=== PATIENT | female | born 1960 | race Caucasian/White ===

== ENCOUNTER 2020-02-15 23:11 | Inpatient (IN) | payer BC, MEDICAID ==
[~2020-02-15] VITALS: Ht 165.1 cm; Wt 68.9 kg
[2020-02-15] MEDS ORDERED: ASPIRIN 81MG TABLET PO ONE (23:30)
[2020-02-16] VITALS (51 sets, daily range): BP systolic 44–169; BP diastolic 24–98
[2020-02-16] LABS: HEMATOCRIT. 45.9 % (36.0-48.0); HEMOGLOBIN. 14.9 g/dL (12.0-16.0); MEAN CORPUSCULAR HEMOGLOBIN 28.8 pg (28.0-32.0); MEAN PLATELET VOLUME 10.7 fl (7.4-10.4); PLATELET 144 x1000/uL (130-400); RED BLOOD CELL COUNT 5.16 mill/uL (4.2-5.4)
[2020-02-16 00:19] LABS: CHLORIDE 94 mEq/L (98-107)
[2020-02-16 00:20] LABS: INR 1.1
[2020-02-16] MEDS ORDERED: LIDOCAINE HCL 1% 20ML VIAL (Pyxis) INJ ONE (00:39)
[2020-02-16] MEDS ORDERED: FENTANYL CITRATE/PF 50MCG/ML 2ML VIAL ONE (00:40)
[2020-02-16] MEDS ORDERED: MIDAZOLAM HCL 2 MG/2 ML VIAL ONE (00:40)
[2020-02-16] MEDS ORDERED: FUROSEMIDE 40MG/4ML VIAL ONE ×2 (00:53→03:02)
[2020-02-16] MEDS ORDERED: PROTAMINE SULFATE 10MG/ML VIAL 5ML IV ONE (01:38)
[2020-02-16] MEDS ORDERED: DOPAMINE 400MG/250ML PREMIX 250 ML IV ONE (01:48)
[2020-02-16] MEDS ORDERED: HEPARIN SODIUM 1,000 UNIT/1ML VIAL IV ONE (02:00)
[2020-02-16] MEDS ORDERED: NICARDIPINE 100MCG/ML 10ML VIAL (CATH LAB) IV ONE (02:00)
[2020-02-16] MEDS ORDERED: NITROGLYCERIN 50MCG/ML 10ML VIAL (CATH LAB) IV ONE (02:00)
[2020-02-16] MEDS ORDERED: IODIXANOL 320MG/ML 200ML BOTTLE ONE (02:01)
[2020-02-16] MEDS ORDERED: DIPHENHYDRAMINE 50MG/ML VIAL ONE (02:02)
[2020-02-16] MEDS ORDERED: TICAGRELOR 90 MG TABLET PO ONE (03:01)
[2020-02-16] MEDS ORDERED: ATROPINE SULFATE 1MG/10ML SYR IV PRN (03:15)
[2020-02-16] MEDS ORDERED: ONDANSETRON HCL 4MG/2ML INJ IV PRN (03:30)
[2020-02-16] MEDS ORDERED: DEXTROSE 50% WATER 50ML SYRINGE IV PRN ×4 (03:30→16:30)
[2020-02-16 04:42] LABS: PLATELET ESTIMATE NORMAL
[2020-02-16] MEDS ORDERED: FUROSEMIDE 100MG/10ML VIAL IVP SCH (06:00)
[2020-02-16] MEDS ORDERED: HALOPERIDOL LACTATE 5MG/ML VIAL IM NR (07:10)
[2020-02-16] MEDS ORDERED: INSULIN LISPRO 100 UNITS/ML SUBCUT SCH ×2 (07:50→08:20)
[2020-02-16] MEDS: BLOOD SUGAR DIAGNOSTIC STRIP TEST SCH ×8 (09:00→23:00)
[2020-02-16] MEDS: TICAGRELOR 90 MG TABLET PO SCH ×2 (09:00→17:00)
[2020-02-16] MEDS: ASPIRIN 81MG EC TABLET PO SCH (09:00)
[2020-02-16 10:24] LABS: CHLORIDE 95 mEq/L (98-107)
[2020-02-16 10:25] LABS: HEMATOCRIT 40.8 % (36.0-48.0); HEMOGLOBIN 13.2 g/dL (12.0-16.0); MEAN CORPUSCULAR HEMOGLOBIN 29.1 pg (28.0-32.0); MEAN CORPUSCULAR VOLUME 89.9 fL (81.0-99.0); PLATELET 126 x1000/uL (130-400); RED BLOOD CELL COUNT 4.53 mill/uL (4.2-5.4); RED CELL DISTRIBUTION WIDTH 14.4 % (11.6-14.6)
[2020-02-16 10:57] LABS: BG BASE EXCESS -14.9 mmol/L (-2.0-2.0); BG CARBOXYHEMOGLOBIN 0.8 % (0.5-1.5); BG DEOXYHEMOGLOBIN 0.9 % (0.0-5.0); BG HCO3 ACT 8.7 mmol/L (22.0-26.0); BG METHEMOGLOBIN 0.3 % (0.0-1.5); BG OXYGEN SATURATION 99.1 % (92.0-98.5); BG PCO2 17.5 mmHg (35.0-45.0); BG PH 7.314 (7.350-7.450); BG PO2 249.2 mmHg (75.0-100.0); BG SAMPLE SITE RIGHT RADIAL; BG TOTAL HEMOGLOBIN 13.6 g/dL (12.0-18.0); BG VENT MODE MASK - BIPAP
[2020-02-16] MEDS ORDERED: HALOPERIDOL LACTATE 5MG/ML VIAL IM PRN (11:00)
[2020-02-16] MEDS: INSULIN LISPRO 100 UNITS/ML SUBCUT SCH ×2 (11:13→12:09)
[2020-02-16] MEDS ORDERED: BLOOD SUGAR DIAGNOSTIC STRIP TEST SCH ×2 (11:50→16:30)
[2020-02-16] MEDS ORDERED: INSULIN GLARGINE UD 100 UNITS/ML SYR SUBCUT NR ×2 (12:00→13:00)
[2020-02-16] MEDS ORDERED: INSULIN LISPRO 100 UNITS/ML SUBCUT NR (12:00)
[2020-02-16] MEDS ORDERED: CEFTRIAXONE 1 G PREMIX 50 ML IV SCH (13:00)
[2020-02-16 14:15] LABS: CLARITY URINE TURBID (CLEAR); COLOR URINE ORANGE (YELLOW); KETONES URINE NEGATIVE (NEGATIVE); LEUKOCYTE ESTERASE URINE 2+ (NEGATIVE); NITRITE URINE NEGATIVE (NEGATIVE); OCCULT BLOOD URINE 3+ (NEGATIVE); PROTEIN URINE 4+ (NEGATIVE); SPECIFIC GRAVITY URINE 1.038 (1.005-1.030)
[2020-02-16] MEDS: CEFTRIAXONE 1,000 MG in DEXTROSE 5% WATER 50 ML IV SCH (14:21)
[2020-02-16] MEDS ORDERED: LORAZEPAM 2MG/ML CPJ IV PRN (15:30)
[2020-02-16] MEDS ORDERED: SODIUM CHLORIDE 0.45% IV ONE ×2 (16:30→17:00)
[2020-02-16] MEDS ORDERED: SODIUM BICARBONATE IV ONE ×2 (16:30→17:00)
[2020-02-16] MEDS ORDERED: INSULIN REGULAR (DRIP) 100 UNITS in SODIUM CHLORIDE 0.9% 100 ML IV SCH (17:00)
[2020-02-16 17:48] LABS: BETA HYDROXYBUTYRATE 0.4 mMol/L (0.0-0.3)
[2020-02-16] MEDS ORDERED: SODIUM BICARBONATE 5MEQ SYR 150 MEQ in DEXTROSE 5% WATER 1,000 ML IV SCH (18:30)
[2020-02-16] MEDS ORDERED: ATORVASTATIN CALCIUM 40MG TABLET PO SCH (21:00)
[2020-02-16] MEDS: SODIUM BICARBONATE 150 MEQ in DEXTROSE 5% WATER 1,000 ML IV SCH (22:29)
[2020-02-17] VITALS (93 sets, daily range): BP systolic 36–147; BP diastolic 16–122
[2020-02-17] MEDS: BLOOD SUGAR DIAGNOSTIC STRIP TEST SCH ×12 (01:00→17:50)
[2020-02-17 06:23] LABS: CHLORIDE 98 mEq/L (98-107); HEMATOCRIT. 37.8 % (36.0-48.0); HEMOGLOBIN. 12.8 g/dL (12.0-16.0); MEAN CORPUSCULAR HEMOGLOBIN 28.7 pg (28.0-32.0); MEAN PLATELET VOLUME 11.3 fl (7.4-10.4); PLATELET 93 x1000/uL (130-400); RED BLOOD CELL COUNT 4.44 mill/uL (4.2-5.4); RED CELL DISTRIBUTION WIDTH 13.9 % (11.6-14.6)
[2020-02-17] MEDS: SODIUM BICARBONATE 150 MEQ in DEXTROSE 5% WATER 1,000 ML IV SCH (09:09)
[2020-02-17] MEDS: TICAGRELOR 90 MG TABLET PO SCH (09:09)
[2020-02-17] MEDS: ASPIRIN 81MG EC TABLET PO SCH (09:09)
[2020-02-17] MEDS ORDERED: INSULIN GLARGINE UD 100 UNITS/ML SYR SUBCUT SCH (10:00)
[2020-02-17] MEDS ORDERED: SODIUM BICARBONATE 4% (2.4MEQ) 5ML VIAL IV ONE (11:09)
[2020-02-17] MEDS ORDERED: LIDOCAINE HCL 1% 20ML VIAL (Pyxis) INJ ONE (11:09)
[2020-02-17] MEDS ORDERED: DEXTROSE 50% WATER 50ML SYRINGE IV PRN (12:30)
[2020-02-17] MEDS ORDERED: POTASSIUM CHLORIDE 20MEQ/PACKET PO NR (12:30)
[2020-02-17 13:50] LABS: PHOSPHORUS 1.9 mg/dL (2.5-4.9)
[2020-02-17 13:53] LABS: BG BASE EXCESS 6.9 mmol/L (-2.0-2.0); BG CARBOXYHEMOGLOBIN 0.7 % (0.5-1.5); BG DEOXYHEMOGLOBIN 1.8 % (0.0-5.0); BG FRACTION INSPIRED OXYGEN 44; BG HCO3 ACT 28.1 mmol/L (22.0-26.0); BG METHEMOGLOBIN 0.3 % (0.0-1.5); BG OXYGEN SATURATION 98.2 % (92.0-98.5); BG OXYHEMOGLOBIN 97.2 % (94.0-97.0); BG PCO2 29.8 mmHg (35.0-45.0); BG PH 7.593 (7.350-7.450); BG PO2 122.5 mmHg (75.0-100.0); BG SAMPLE SITE RIGHT RADIAL; BG TOTAL HEMOGLOBIN 12.7 g/dL (12.0-18.0); BG VENT MODE NASAL CANNULA
[2020-02-17] MEDS: CEFTRIAXONE 1,000 MG in DEXTROSE 5% WATER 50 ML IV SCH (13:53)
[2020-02-17] MEDS ORDERED: INSULIN GLARGINE UD 100 UNITS/ML SYR SUBCUT NR (14:00)
[2020-02-17] MEDS ORDERED: FUROSEMIDE 40MG/4ML VIAL IVP NR (14:00)
[2020-02-17] MEDS ORDERED: KCL 10MEQ/50ML PREMIX 50 ML IV NR (14:00)
[2020-02-17] MEDS ORDERED: AMIODARONE HCL 50MG/ML 3ML VIAL IV ONE (15:15)
[2020-02-17] MEDS ORDERED: CLOPIDOGREL 75MG TABLET PO NR (16:15)
[2020-02-17] MEDS ORDERED: AMIODARONE HCL 150 MG in DEXT 5% WATER 100 ML IV NR (17:00)
[2020-02-17 17:29] LABS: PLATELET ESTIMATE DECREASED
[2020-02-17] MEDS: INSULIN LISPRO 100 UNITS/ML SUBCUT SCH (18:48)
[2020-02-17] MEDS: INSULIN GLARGINE UD 100 UNITS/ML SYR SUBCUT SCH (22:17)
[2020-02-18] VITALS (81 sets, daily range): BP systolic 84–154; BP diastolic 28–118
[2020-02-18] MEDS: BLOOD SUGAR DIAGNOSTIC STRIP TEST SCH ×4 (00:19→17:49)
[2020-02-18 04:26] LABS: CHLORIDE 96 mEq/L (98-107)
[2020-02-18] MEDS: INSULIN LISPRO 100 UNITS/ML SUBCUT SCH ×4 (05:53→18:04)
[2020-02-18] MEDS: ASPIRIN 81MG EC TABLET PO SCH (08:35)
[2020-02-18] MEDS: CLOPIDOGREL 75MG TABLET PO SCH (08:35)
[2020-02-18 09:43] LABS: CHLORIDE 95 mEq/L (98-107)
[2020-02-18] MEDS: SPIRONOLACTONE 25MG TABLET PO SCH (10:47)
[2020-02-18] MEDS ORDERED: POTASSIUM CHLORIDE 20MEQ TABLET SR PO SCH (11:00)
[2020-02-18] MEDS ORDERED: POTASSIUM CHLORIDE 20MEQ TABLET SR PO ONE (11:00)
[2020-02-18] MEDS ORDERED: POTASSIUM PHOS,M-BASIC-D-BASIC 30 MMOL in SODIUM CHLORIDE 0.9% 500 ML IV SCH (13:00)
[2020-02-18] MEDS: CEFTRIAXONE 1,000 MG in DEXTROSE 5% WATER 50 ML IV SCH (13:15)
[2020-02-18 15:31] LABS: CHLORIDE 95 mEq/L (98-107)
[2020-02-18] MEDS: METOPROLOL TARTRATE 25MG TABLET PO SCH (21:42)
[2020-02-18] MEDS: INSULIN GLARGINE UD 100 UNITS/ML SYR SUBCUT SCH (22:09)
[2020-02-19] VITALS (17 sets, daily range): BP systolic 87–131; BP diastolic 33–82
[2020-02-19] MEDS: INSULIN LISPRO 100 UNITS/ML SUBCUT SCH ×4 (00:38→18:11)
[2020-02-19] MEDS: BLOOD SUGAR DIAGNOSTIC STRIP TEST SCH ×5 (00:40→21:53)
[2020-02-19] MEDS: ACETAMINOPHEN 325MG TABLET PO PRN (03:28)
[2020-02-19 04:38] LABS: CHLORIDE 98 mEq/L (98-107)
[2020-02-19] MEDS: METOPROLOL TARTRATE 25MG TABLET PO SCH ×2 (08:20→21:00)
[2020-02-19] MEDS: FUROSEMIDE 40MG TABLET PO SCH (08:21)
[2020-02-19] MEDS: ASPIRIN 81MG EC TABLET PO SCH (08:21)
[2020-02-19] MEDS: SPIRONOLACTONE 25MG TABLET PO SCH (08:21)
[2020-02-19] MEDS: CLOPIDOGREL 75MG TABLET PO SCH (08:21)
[2020-02-19 09:43] LABS: CHLORIDE 99 mEq/L (98-107)
[2020-02-19] MEDS: CEFTRIAXONE 1,000 MG in DEXTROSE 5% WATER 50 ML IV SCH (14:26)
[2020-02-19 17:31] LABS: CHLORIDE 98 mEq/L (98-107)
[2020-02-19] MEDS: INSULIN GLARGINE UD 100 UNITS/ML SYR SUBCUT SCH (22:00)
[2020-02-20] VITALS (7 sets, daily range): BP systolic 101–126; BP diastolic 61–70
[2020-02-20] MEDS: INSULIN LISPRO 100 UNITS/ML SUBCUT SCH ×4 (00:10→17:16)
[2020-02-20] MEDS: ACETAMINOPHEN 325MG TABLET PO PRN ×2 (01:55→17:09)
[2020-02-20] MEDS: BLOOD SUGAR DIAGNOSTIC STRIP TEST SCH ×3 (06:29→16:09)
[2020-02-20] MEDS ORDERED: LISINOPRIL 5MG TABLET PO SCH (09:00)
[2020-02-20] MEDS: CLOPIDOGREL 75MG TABLET PO SCH (09:54)
[2020-02-20] MEDS: FUROSEMIDE 40MG TABLET PO SCH (09:54)
[2020-02-20] MEDS: SPIRONOLACTONE 25MG TABLET PO SCH (09:54)
[2020-02-20] MEDS: ASPIRIN 81MG EC TABLET PO SCH (09:54)
[2020-02-20] MEDS: METOPROLOL TARTRATE 25MG TABLET PO SCH (09:55)
[2020-02-20 13:11] LABS: HEMATOCRIT. 41.9 % (36.0-48.0); MEAN CORPUSCULAR HEMOGLOBIN 28.5 pg (28.0-32.0); MEAN CORPUSCULAR VOLUME 85.3 fL (81.0-99.0); MEAN PLATELET VOLUME 10.8 fl (7.4-10.4); PLATELET 76 x1000/uL (130-400); RED BLOOD CELL COUNT 4.91 mill/uL (4.2-5.4); RED CELL DISTRIBUTION WIDTH 14.2 % (11.6-14.6)
[2020-02-20] MEDS: CEFTRIAXONE 1,000 MG in DEXTROSE 5% WATER 50 ML IV SCH (14:00)
[2020-02-20 14:19] LABS: CHLORIDE 99 mEq/L (98-107)
[2020-02-20 22:50] LABS: NUCLEATED RED BLOOD CELLS 1 /100 WBC
[2020-02-20 22:51] LABS: PLATELET ESTIMATE DECREASED
== END 2020-02-20 21:00 | disposition home health service (06) | DRG 246 ==
LOC: ER 23:11 → 3WST 02-16 00:46 → 5EST 02-16 11:35 → 5WST 02-19 18:28
PROVIDERS: ADMIT Internal Medicine; ATTEND Internal Medicine
PROC: 4A023N7 Measurement of Cardiac Sampling and Pressure, Left Heart, Percutaneous Approach (ICD-10-PCS; principal; 2020-02-16)
PROC: 0270366 Dilation of Coronary Artery, One Artery, Bifurcation, with Three Drug-eluting Intraluminal Devices, Percutaneous Approach (ICD-10-PCS; 2020-02-16)
PROC: B211YZZ Fluoroscopy of Multiple Coronary Arteries using Other Contrast (ICD-10-PCS; 2020-02-16)
PROC: B41FYZZ Fluoroscopy of Right Lower Extremity Arteries using Other Contrast (ICD-10-PCS; 2020-02-16)
PROC: B54BZZA Ultrasonography of Right Lower Extremity Veins, Guidance (ICD-10-PCS; 2020-02-16)
PROC: 02HV33Z Insertion of Infusion Device into Superior Vena Cava, Percutaneous Approach (ICD-10-PCS; 2020-02-17)
PROC: B548ZZA Ultrasonography of Superior Vena Cava, Guidance (ICD-10-PCS; 2020-02-17)
DX: I21.19 ST elevation (STEMI) myocardial infarction involving other coronary artery of inferior wall (principal); E11.10 Type 2 diabetes mellitus with ketoacidosis without coma; I50.21 Acute systolic (congestive) heart failure; J96.01 Acute respiratory failure with hypoxia; R57.0 Cardiogenic shock; G93.41 Metabolic encephalopathy; K72.00 Acute and subacute hepatic failure without coma; N17.9 Acute kidney failure, unspecified; E87.1 Hypo-osmolality and hyponatremia; I47.1 Supraventricular tachycardia; I25.10 Atherosclerotic heart disease of native coronary artery without angina pectoris; E87.6 Hypokalemia; I34.0 Nonrheumatic mitral (valve) insufficiency; I25.5 Ischemic cardiomyopathy; D69.6 Thrombocytopenia, unspecified; E83.39 Other disorders of phosphorus metabolism; K59.00 Constipation, unspecified; Z79.4 Long term (current) use of insulin; Z20.822 Contact with and (suspected) exposure to COVID-19
CPT/HCPCS: 36415; 36600; 71045; 76937; 80048; 80053; 80061; 81003; 82010; 82375; 82805; 82947; 82962; 83036; 83605; 83735; 83880; 84100; 84484; 85025; 85027; 85347; 87077; 87186; 87426; 92610; 92928; 93005; 93306; 93458; 94660; 97162; 97166; 97530; 97535; 99285; C1725; C1760; C1769; C1874 ×2; C1887; C1893; J0282; J0696; J1200; J1265; J1630; J1644; J1815; J1940; J2250; J2720; J3010; J3480; J3490; J7040; J7050; J7060; J7070; Q9967; U0003; J8499

== ENCOUNTER 2020-03-01 19:22 | Inpatient (IN) | payer BC, MEDICAID ==
[~2020-03-01] VITALS: Ht 167.6 cm; Wt 73.5 kg
[2020-03-01 20:23] LABS: BASOPHILS % 0.4 % (0.0-2.0); EOSINOPHILS % 0.5 % (0.0-5.0); HEMATOCRIT. 38.3 % (36.0-48.0); HEMOGLOBIN. 12.6 g/dL (12.0-16.0); LYMPHOCYTES % 9.9 % (20.0-50.0); MEAN CORPUSCULAR HEMOGLOBIN 28.4 pg (28.0-32.0); MEAN CORPUSCULAR VOLUME 86.3 fL (81.0-99.0); MONOCYTES % 4.8 % (2.0-8.0); NEUTROPHILS % 84.4 % (40.0-76.0); PLATELET 305 x1000/uL (130-400); RED BLOOD CELL COUNT 4.44 mill/uL (4.2-5.4); RED CELL DISTRIBUTION WIDTH 14.2 % (11.6-14.6)
[2020-03-01 20:31] LABS: CHLORIDE 89 mEq/L (98-107); PROTHROMBIN TIME 10.9 sec (9.6-11.0)
[2020-03-01 20:35] LABS: ETHANOL BLOOD < 10 mg/dL
[2020-03-01] MEDS ORDERED: SODIUM CHLORIDE 0.9% 1,000 ML IV ONE (20:45)
[2020-03-01] MEDS ORDERED: INSULIN REGULAR (HUMULIN R) 300UNITS/3ML VIAL IV ONE (21:00)
[2020-03-02 03:03] LABS: CLARITY URINE TURBID (CLEAR); COLOR URINE YELLOW (YELLOW); KETONES URINE NEGATIVE (NEGATIVE); LEUKOCYTE ESTERASE URINE 2+ (NEGATIVE); NITRITE URINE NEGATIVE (NEGATIVE); OCCULT BLOOD URINE 2+ (NEGATIVE); PROTEIN URINE TRACE (NEGATIVE); SPECIFIC GRAVITY URINE 1.021 (1.005-1.030); UROBILINOGEN URINE 0.2 E.U./dL (0.2-1.0)
[2020-03-02 03:21] LABS: *AMPHETAMINES SCREEN URINE NEGATIVE (NEGATIVE); *BARBITURATES SCREEN URINE NEGATIVE (NEGATIVE); *BENZODIAZEPINES SCREEN URINE NEGATIVE (NEGATIVE); *COCAINE SCREEN URINE NEGATIVE (NEGATIVE); METHADONE URINE SCREEN NEGATIVE (NEGATIVE)
[2020-03-02 03:22] LABS: CANNABINOID URINE SCREEN NEGATIVE (NEGATIVE); OPIATES URINE SCREEN NEGATIVE (NEGATIVE); PHENCYCLIDINE URINE SCREEN NEGATIVE (NEGATIVE)
[2020-03-02] MEDS: ASPIRIN 81MG TABLET PO SCH (10:45)
[2020-03-02] MEDS: CLOPIDOGREL 75MG TABLET PO SCH (10:45)
[2020-03-02] MEDS ORDERED: DEXTROSE 50% WATER 50ML SYRINGE IV PRN (12:00)
[2020-03-02] MEDS ORDERED: ONDANSETRON HCL 4MG/2ML INJ IV PRN (12:00)
[2020-03-02] MEDS ORDERED: ACETAMINOPHEN 325MG TABLET PO PRN (12:00)
[2020-03-02] MEDS: BLOOD SUGAR DIAGNOSTIC STRIP TEST SCH ×3 (12:41→21:52)
[2020-03-02] MEDS: INSULIN LISPRO 100 UNITS/ML SUBCUT SCH ×3 (12:43→21:52)
[2020-03-02] MEDS: INSULIN GLARGINE UD 100 UNITS/ML SYR SUBCUT SCH (14:16)
[2020-03-02 14:19] LABS: BASOPHILS % 0.9 % (0.0-2.0); EOSINOPHILS % 0.4 % (0.0-5.0); HEMATOCRIT. 37.2 % (36.0-48.0); HEMOGLOBIN. 12.1 g/dL (12.0-16.0); LYMPHOCYTES % 10.7 % (20.0-50.0); MEAN CORPUSCULAR VOLUME 86.2 fL (81.0-99.0); MEAN PLATELET VOLUME 8.9 fl (7.4-10.4); MONOCYTES % 4.6 % (2.0-8.0); NEUTROPHILS % 83.4 % (40.0-76.0); PLATELET 307 x1000/uL (130-400); RED BLOOD CELL COUNT 4.32 mill/uL (4.2-5.4); RED CELL DISTRIBUTION WIDTH 14.2 % (11.6-14.6)
[2020-03-02 14:26] LABS: CHLORIDE 103 mEq/L (98-107)
[2020-03-02] MEDS ORDERED: FLUCONAZOLE 100MG TABLET PO NR (18:45)
[2020-03-02] MEDS ORDERED: TRAZODONE HCL 50MG TABLET PO PRN (21:00)
[2020-03-02] MEDS: ATORVASTATIN CALCIUM 40MG TABLET PO SCH (21:51)
[2020-03-02] MEDS: HEPARIN 5000 UNITS/ML VIAL SUBCUT SCH (21:54)
[2020-03-03 06:02] LABS: BASOPHILS % 1.1 % (0.0-2.0); EOSINOPHILS % 0.6 % (0.0-5.0); HEMATOCRIT. 38.6 % (36.0-48.0); HEMOGLOBIN. 12.8 g/dL (12.0-16.0); LYMPHOCYTES % 15.1 % (20.0-50.0); MEAN CORPUSCULAR HEMOGLOBIN 28.1 pg (28.0-32.0); MEAN CORPUSCULAR VOLUME 84.9 fL (81.0-99.0); MEAN PLATELET VOLUME 8.7 fl (7.4-10.4); MONOCYTES % 8.7 % (2.0-8.0); NEUTROPHILS % 74.5 % (40.0-76.0); PLATELET 339 x1000/uL (130-400); RED BLOOD CELL COUNT 4.55 mill/uL (4.2-5.4); RED CELL DISTRIBUTION WIDTH 14.2 % (11.6-14.6)
[2020-03-03 06:36] LABS: CHLORIDE 104 mEq/L (98-107)
[2020-03-03] MEDS: BLOOD SUGAR DIAGNOSTIC STRIP TEST SCH ×4 (10:00→21:07)
[2020-03-03] MEDS: HEPARIN 5000 UNITS/ML VIAL SUBCUT SCH ×2 (10:00→21:17)
[2020-03-03] MEDS: ASPIRIN 81MG TABLET PO SCH (10:00)
[2020-03-03] MEDS: CLOPIDOGREL 75MG TABLET PO SCH (10:00)
[2020-03-03] MEDS: INSULIN LISPRO 100 UNITS/ML SUBCUT SCH ×4 (10:00→21:16)
[2020-03-03] MEDS: INSULIN GLARGINE UD 100 UNITS/ML SYR SUBCUT SCH (11:00)
[2020-03-03] MEDS ORDERED: INSULIN GLARGINE UD 100 UNITS/ML SYR SUBCUT NR (14:45)
[2020-03-03 21:52] VITALS: BP 136/72
[2020-03-03 22:30] VITALS: BP 136/72
[2020-03-04] VITALS (7 sets, daily range): BP systolic 115–133; BP diastolic 41–77
[2020-03-04] MEDS: ATORVASTATIN CALCIUM 40MG TABLET PO SCH (00:03)
[2020-03-04] MEDS: BLOOD SUGAR DIAGNOSTIC STRIP TEST SCH ×2 (06:30→12:34)
[2020-03-04] MEDS: INSULIN LISPRO 100 UNITS/ML SUBCUT SCH ×2 (06:44→13:29)
[2020-03-04] MEDS ORDERED: PNEUMOCOCCAL 23-VAL P-SAC VAC 0.5 ML IM ONE (06:45)
[2020-03-04] MEDS ORDERED: INFLUENZA VACCINE 05/PF 0.5 ML VIAL IM ONE (06:45)
[2020-03-04 07:19] LABS: EOSINOPHILS % 0.7 % (0.0-5.0); HEMATOCRIT. 35.2 % (36.0-48.0); HEMOGLOBIN. 11.7 g/dL (12.0-16.0); LYMPHOCYTES % 18.9 % (20.0-50.0); MEAN CORPUSCULAR HEMOGLOBIN 28.3 pg (28.0-32.0); MEAN CORPUSCULAR VOLUME 84.8 fL (81.0-99.0); MEAN PLATELET VOLUME 8.9 fl (7.4-10.4); MONOCYTES % 10.6 % (2.0-8.0); NEUTROPHILS % 68.8 % (40.0-76.0); PLATELET 328 x1000/uL (130-400); RED BLOOD CELL COUNT 4.14 mill/uL (4.2-5.4); RED CELL DISTRIBUTION WIDTH 14.1 % (11.6-14.6)
[2020-03-04 07:42] LABS: CHLORIDE 106 mEq/L (98-107)
[2020-03-04] MEDS: HEPARIN 5000 UNITS/ML VIAL SUBCUT SCH (09:28)
[2020-03-04] MEDS: CLOPIDOGREL 75MG TABLET PO SCH (09:28)
[2020-03-04] MEDS: ASPIRIN 81MG TABLET PO SCH (09:28)
[2020-03-04] MEDS ORDERED: INSULIN GLARGINE UD 100 UNITS/ML SYR SUBCUT SCH ×2 (10:00)
[2020-03-04] MEDS ORDERED: CLOP75TA15 PO (11:47)
[2020-03-04] MEDS ORDERED: ASPI-1160 PO (11:47)
[2020-03-04] MEDS ORDERED: LIP40 PO (11:47)
[2020-03-04] MEDS ORDERED: LANTUSUD SUBCUT (11:47)
[2020-03-04] MEDS ORDERED: METO25TA6 PO (11:47)
[2020-03-04] MEDS ORDERED: METOPROLOL TARTRATE 25MG TABLET PO SCH (21:00)
== END 2020-03-04 16:17 | disposition home or self-care (01) | DRG 280 ==
LOC: ER 19:22 → 3WST 20:43 → ENRESERV 03-03 20:52
PROVIDERS: ADMIT Internal Medicine; ATTEND Internal Medicine
DX: I21.4 Non-ST elevation (NSTEMI) myocardial infarction (principal); E11.10 Type 2 diabetes mellitus with ketoacidosis without coma; E87.1 Hypo-osmolality and hyponatremia; I50.22 Chronic systolic (congestive) heart failure; N39.0 Urinary tract infection, site not specified; I95.9 Hypotension, unspecified; E11.65 Type 2 diabetes mellitus with hyperglycemia; E78.5 Hyperlipidemia, unspecified; E86.0 Dehydration; E87.8 Other disorders of electrolyte and fluid balance, not elsewhere classified; G47.00 Insomnia, unspecified; E86.1 Hypovolemia; I11.0 Hypertensive heart disease with heart failure; I25.10 Atherosclerotic heart disease of native coronary artery without angina pectoris; I25.2 Old myocardial infarction; Z79.4 Long term (current) use of insulin; Z98.61 Coronary angioplasty status; Z79.899 Other long term (current) drug therapy; Z79.82 Long term (current) use of aspirin
CPT/HCPCS: 36415; 71045; 80053; 80320; 82962; 83735; 83880; 84484; 85025; 90686; 90732; 93005; 96361; 96372; 96374; 97162; 97166; 99285; J1644; J1815; J7030; G0480

== ENCOUNTER 2020-03-14 20:38 | Inpatient (IN) | payer BC, MEDICAID ==
[~2020-03-14] VITALS: Ht 165.1 cm; Wt 68.0 kg
[~2020-03-14 20:38] MED LIST: ASPI-1160 PO; CLOP75TA15 PO; LANTUSUD SUBCUT; LIP40 PO
[2020-03-14 21:42] LABS: BASOPHILS % 1.1 % (0.0-2.0); EOSINOPHILS % 0.5 % (0.0-5.0); HEMOGLOBIN. 12.7 g/dL (12.0-16.0); LYMPHOCYTES % 12.6 % (20.0-50.0); MEAN CORPUSCULAR HEMOGLOBIN 28.4 pg (28.0-32.0); MEAN CORPUSCULAR VOLUME 84.6 fL (81.0-99.0); MEAN PLATELET VOLUME 7.5 fl (7.4-10.4); MONOCYTES % 7.4 % (2.0-8.0); NEUTROPHILS % 78.4 % (40.0-76.0); PLATELET 362 x1000/uL (130-400); RED BLOOD CELL COUNT 4.49 mill/uL (4.2-5.4); RED CELL DISTRIBUTION WIDTH 14.5 % (11.6-14.6)
[2020-03-14] MEDS ORDERED: FUROSEMIDE 100MG/10ML VIAL IVP ONE (21:45)
[2020-03-14 21:46] LABS: CHLORIDE 100 mEq/L (98-107)
[2020-03-14 21:49] LABS: INR 1.1; PROTHROMBIN TIME 11.4 sec (9.6-11.0)
[2020-03-14] MEDS ORDERED: FUROSEMIDE 20MG/2ML VIAL IVP ONE (22:30)
[2020-03-14] MEDS ORDERED: ASPIRIN 325MG TABLET PO NR (22:30)
[2020-03-14] MEDS ORDERED: ENOXAPARIN 80MG/0.8ML SYR SUBCUT ONE (22:45)
[2020-03-14] MEDS ORDERED: ONDANSETRON HCL 4MG/2ML INJ IV PRN (22:45)
[2020-03-14] MEDS ORDERED: CLOPIDOGREL 75MG TABLET PO ONE (22:45)
[2020-03-14] MEDS ORDERED: TRAZODONE HCL 50MG TABLET PO PRN (22:45)
[2020-03-14] MEDS ORDERED: ACETAMINOPHEN 325MG TABLET PO PRN (22:45)
[2020-03-14] MEDS ORDERED: DEXTROSE 50% WATER 50ML SYRINGE IV PRN (22:45)
[2020-03-15] MEDS: ENOXAPARIN 40MG/0.4ML SYR SUBCUT SCH (06:58)
[2020-03-15] MEDS: BLOOD SUGAR DIAGNOSTIC STRIP TEST SCH ×4 (08:15→21:31)
[2020-03-15] MEDS: INSULIN LISPRO 100 UNITS/ML SUBCUT SCH ×4 (08:19→23:26)
[2020-03-15] MEDS: ASPIRIN 81MG EC TABLET PO SCH (08:19)
[2020-03-15] MEDS ORDERED: CEFTRIAXONE 1 G PREMIX 50 ML IV SCH (12:15)
[2020-03-15] MEDS: CLOPIDOGREL 75MG TABLET PO SCH (13:13)
[2020-03-15] MEDS: CEFTRIAXONE 1,000 MG in DEXTROSE 5% WATER 50 ML IV SCH (15:17)
[2020-03-15] MEDS: AZITHROMYCIN 500 MG in DEXT 5% WATER 250 ML IV SCH (15:17)
[2020-03-15 16:00] VITALS: BP 103/62
[2020-03-15 17:32] LABS: BASOPHILS % 0.6 % (0.0-2.0); EOSINOPHILS % 0.9 % (0.0-5.0); HEMATOCRIT. 33.6 % (36.0-48.0); HEMOGLOBIN. 11.2 g/dL (12.0-16.0); LYMPHOCYTES % 14.6 % (20.0-50.0); MEAN CORPUSCULAR VOLUME 83.7 fL (81.0-99.0); MEAN PLATELET VOLUME 7.6 fl (7.4-10.4); MONOCYTES % 6.3 % (2.0-8.0); NEUTROPHILS % 77.6 % (40.0-76.0); PLATELET 355 x1000/uL (130-400); RED BLOOD CELL COUNT 4.02 mill/uL (4.2-5.4); RED CELL DISTRIBUTION WIDTH 14.8 % (11.6-14.6)
[2020-03-15 17:51] LABS: CHLORIDE 99 mEq/L (98-107)
[2020-03-15 20:00] VITALS: BP 100/50
[2020-03-15] MEDS: METOPROLOL TARTRATE 25MG TABLET PO SCH (21:00)
[2020-03-15] MEDS: ATORVASTATIN CALCIUM 40MG TABLET PO SCH (23:26)
[2020-03-16] VITALS (7 sets, daily range): BP systolic 101–118; BP diastolic 56–80
[2020-03-16] MEDS: ENOXAPARIN 40MG/0.4ML SYR SUBCUT SCH (05:25)
[2020-03-16] MEDS: BLOOD SUGAR DIAGNOSTIC STRIP TEST SCH ×4 (06:40→21:00)
[2020-03-16] MEDS: INSULIN LISPRO 100 UNITS/ML SUBCUT SCH ×4 (07:10→22:36)
[2020-03-16] MEDS ORDERED: LIDOCAINE HCL 1% 20ML VIAL (Pyxis) INJ ONE (07:39)
[2020-03-16] MEDS ORDERED: IODIXANOL 320MG/ML 100 ML BOTTLE IV ONE (07:39)
[2020-03-16] MEDS ORDERED: HEPARIN 1,000 UNITS PREMIX 0 ML IV ONE (07:39)
[2020-03-16] MEDS ORDERED: IOHEXOL-300 100 ML BOTTLE ONE (07:40)
[2020-03-16 08:28] LABS: CHLORIDE 103 mEq/L (98-107)
[2020-03-16] MEDS: CLOPIDOGREL 75MG TABLET PO SCH (08:52)
[2020-03-16] MEDS: METOPROLOL TARTRATE 25MG TABLET PO SCH ×2 (08:52→22:37)
[2020-03-16] MEDS: ASPIRIN 81MG EC TABLET PO SCH (09:00)
[2020-03-16 11:19] LABS: BASOPHILS % 0.6 % (0.0-2.0); EOSINOPHILS % 0.8 % (0.0-5.0); HEMOGLOBIN. 10.5 g/dL (12.0-16.0); LYMPHOCYTES % 13.2 % (20.0-50.0); MEAN CORPUSCULAR HEMOGLOBIN 28.5 pg (28.0-32.0); MEAN PLATELET VOLUME 7.7 fl (7.4-10.4); MONOCYTES % 7.8 % (2.0-8.0); NEUTROPHILS % 77.6 % (40.0-76.0); PLATELET 322 x1000/uL (130-400); RED BLOOD CELL COUNT 3.69 mill/uL (4.2-5.4); RED CELL DISTRIBUTION WIDTH 14.6 % (11.6-14.6)
[2020-03-16] MEDS: CEFTRIAXONE 1,000 MG in DEXTROSE 5% WATER 50 ML IV SCH (13:01)
[2020-03-16] MEDS ORDERED: METO25TA6 PO (13:22)
[2020-03-16] MEDS ORDERED: AZIT500T8 MT (13:22)
[2020-03-16] MEDS: AZITHROMYCIN 500 MG in DEXT 5% WATER 250 ML IV SCH (14:36)
[2020-03-16] MEDS: ATORVASTATIN CALCIUM 40MG TABLET PO SCH (22:36)
[2020-03-17] VITALS: BP 123/72
[2020-03-17 04:00] VITALS: BP 101/62
[2020-03-17] MEDS: ENOXAPARIN 40MG/0.4ML SYR SUBCUT SCH (05:20)
[2020-03-17] MEDS: BLOOD SUGAR DIAGNOSTIC STRIP TEST SCH ×2 (06:40→11:40)
[2020-03-17 06:47] LABS: BASOPHILS % 0.5 % (0.0-2.0); EOSINOPHILS % 1.5 % (0.0-5.0); HEMOGLOBIN. 11.3 g/dL (12.0-16.0); LYMPHOCYTES % 14.8 % (20.0-50.0); MEAN CORPUSCULAR HEMOGLOBIN 27.9 pg (28.0-32.0); MEAN CORPUSCULAR VOLUME 84.3 fL (81.0-99.0); MEAN PLATELET VOLUME 7.8 fl (7.4-10.4); MONOCYTES % 6.3 % (2.0-8.0); NEUTROPHILS % 76.9 % (40.0-76.0); PLATELET 381 x1000/uL (130-400); RED BLOOD CELL COUNT 4.03 mill/uL (4.2-5.4); RED CELL DISTRIBUTION WIDTH 14.6 % (11.6-14.6)
[2020-03-17 07:05] LABS: CHLORIDE 103 mEq/L (98-107)
[2020-03-17 08:00] VITALS: BP 114/73
[2020-03-17] MEDS: CLOPIDOGREL 75MG TABLET PO SCH (09:58)
[2020-03-17] MEDS: METOPROLOL TARTRATE 25MG TABLET PO SCH (09:58)
[2020-03-17] MEDS: ASPIRIN 81MG EC TABLET PO SCH (09:58)
[2020-03-17] MEDS ORDERED: FUROSEMIDE 20MG TABLET PO SCH (10:00)
[2020-03-17] MEDS ORDERED: SPIRONOLACTONE 25MG TABLET PO SCH (10:00)
[2020-03-17] MEDS: INSULIN LISPRO 100 UNITS/ML SUBCUT SCH ×2 (10:03→12:10)
[2020-03-17 12:00] VITALS: BP 105/68
[2020-03-17] MEDS ORDERED: MIDAZOLAM HCL 5 MG/5 ML VIAL ONE (13:23)
[2020-03-17] MEDS ORDERED: FENTANYL CITRATE/PF 50MCG/ML 5ML VIAL ONE (13:23)
[2020-03-17 14:13] VITALS: BP 105/68
== END 2020-03-17 15:05 | disposition home or self-care (01) | DRG 871 ==
LOC: ER 20:38 → 7EST 03-15 00:05 → EDBEDREQ 03-15 00:09 → ENRESERV 03-15 08:17
PROVIDERS: ADMIT Family Medicine Adult Medicine; ATTEND Family Medicine Adult Medicine
DX: A41.9 Sepsis, unspecified organism (principal); I21.4 Non-ST elevation (NSTEMI) myocardial infarction; J18.9 Pneumonia, unspecified organism; I50.23 Acute on chronic systolic (congestive) heart failure; J96.90 Respiratory failure, unspecified, unspecified whether with hypoxia or hypercapnia; E87.1 Hypo-osmolality and hyponatremia; E87.2 Acidosis; Z20.822 Contact with and (suspected) exposure to COVID-19; I25.10 Atherosclerotic heart disease of native coronary artery without angina pectoris; I11.0 Hypertensive heart disease with heart failure; F17.200 Nicotine dependence, unspecified, uncomplicated; E78.5 Hyperlipidemia, unspecified; E11.9 Type 2 diabetes mellitus without complications; Z95.5 Presence of coronary angioplasty implant and graft; I25.2 Old myocardial infarction; Z79.4 Long term (current) use of insulin; Z79.899 Other long term (current) drug therapy; Z79.82 Long term (current) use of aspirin
CPT/HCPCS: 36415; 71045; 80053; 82962; 83036; 83605; 83735; 83880; 84145; 84484; 85025; 87426; 93005; 96365; 99285; J0456; J0696; J1644; J1650; J1815; J1940; J2250; J3010; J3490; J7040; J7060; Q9967; U0003

== ENCOUNTER 2020-04-24 12:19 | Inpatient (IN) | payer OTHER, MEDICAID ==
[~2020-04-24] VITALS: Ht 167 cm; Wt 73.2 kg
[~2020-04-24 12:19] MED LIST changes: +AZIT500T8 MT; +METO25TA6 PO
[2020-04-24] MEDS ORDERED: ASPIRIN 81MG TABLET PO ONE (12:45)
[2020-04-24] MEDS: NITROGLYCERIN 0.4MG TABLET SL SL PRN ×2 (13:00→13:37)
[2020-04-24 13:52] LABS: BASOPHILS % 0.7 % (0.0-2.0); EOSINOPHILS % 2.5 % (0.0-5.0); HEMATOCRIT. 37.2 % (36.0-48.0); HEMOGLOBIN. 12.3 g/dL (12.0-16.0); LYMPHOCYTES % 30.2 % (20.0-50.0); MEAN CORPUSCULAR HEMOGLOBIN 27.1 pg (28.0-32.0); MEAN CORPUSCULAR VOLUME 82.1 fL (81.0-99.0); MEAN PLATELET VOLUME 7.4 fl (7.4-10.4); MONOCYTES % 8.1 % (2.0-8.0); NEUTROPHILS % 58.5 % (40.0-76.0); PLATELET 315 x1000/uL (130-400); RED BLOOD CELL COUNT 4.53 mill/uL (4.2-5.4); RED CELL DISTRIBUTION WIDTH 15.7 % (11.6-14.6)
[2020-04-24 13:59] LABS: CHLORIDE 102 mEq/L (98-107)
[2020-04-24 14:01] LABS: INR 1.1; PROTHROMBIN TIME 11.5 sec (9.6-11.0)
[2020-04-24 16:30] VITALS: BP 138/77
[2020-04-24] MEDS ORDERED: METF1000 MT (16:41)
[2020-04-24] MEDS ORDERED: OXYB5TAB17 MT (16:41)
[2020-04-24] MEDS ORDERED: GABA-532 MT (16:41)
[2020-04-24] MEDS ORDERED: *PATIENT'S OWN MEDICATION STORAGE XX SCH (17:00)
[2020-04-24 18:00] VITALS: BP 147/91
[2020-04-24] MEDS ORDERED: DEXTROSE 50% WATER 50ML SYRINGE IV PRN (18:30)
[2020-04-24 20:01] VITALS: BP 154/73
[2020-04-24] MEDS ORDERED: NITROGLYCERIN 0.4MG TABLET SL SL PRN (20:45)
[2020-04-24] MEDS ORDERED: FUROSEMIDE 40MG/4ML VIAL IVP NR (21:00)
[2020-04-24] MEDS: INSULIN LISPRO 100 UNITS/ML SUBCUT SCH (21:00)
[2020-04-24] MEDS ORDERED: CHLORHEXIDINE GLUCONATE 4% EXTERNAL USE TOP SCH (21:00)
[2020-04-24] MEDS ORDERED: BISACODYL 10MG SUPP PR PRN (21:00)
[2020-04-24] MEDS ORDERED: DIPHENHYDRAMINE 25MG CAPSULE PO PRN (21:00)
[2020-04-24] MEDS ORDERED: ASCORBIC ACID 500 MG TABLET PO SCH (21:00)
[2020-04-24] MEDS ORDERED: ENOXAPARIN 40MG/0.4ML SYR SUBCUT SCH (21:00)
[2020-04-24] MEDS ORDERED: DOCUSATE SODIUM 100MG CAPSULE PO SCH (21:00)
[2020-04-24] MEDS: BLOOD SUGAR DIAGNOSTIC STRIP TEST SCH (21:13)
[2020-04-24 21:47] LABS: INR 1.1; PARTIAL THROMBOPLASTIN TIME 28.8 sec (23.4-31.0); PROTHROMBIN TIME 11.6 sec (9.6-11.0)
[2020-04-24] MEDS: ATORVASTATIN CALCIUM 40MG TABLET PO SCH (21:50)
[2020-04-24] MEDS: ALLOPURINOL 300 MG TABLET PO SCH (21:50)
[2020-04-24] MEDS: METOPROLOL TARTRATE 25MG TABLET PO SCH (21:52)
[2020-04-24 22:00] VITALS: BP 139/75
[2020-04-24] MEDS ORDERED: MAGNESIUM 2 G PREMIX 50 ML IV NR (22:30)
[2020-04-24 22:59] LABS: CLARITY URINE TURBID (CLEAR); COLOR URINE YELLOW (YELLOW); KETONES URINE NEGATIVE (NEGATIVE); LEUKOCYTE ESTERASE URINE 3+ (NEGATIVE); NITRITE URINE POSITIVE (NEGATIVE); OCCULT BLOOD URINE 2+ (NEGATIVE); PH URINE 6.5 (4.5-8.0); PROTEIN URINE 1+ (NEGATIVE); SPECIFIC GRAVITY URINE 1.009 (1.005-1.030); UROBILINOGEN URINE 0.2 E.U./dL (0.2-1.0)
[2020-04-25] VITALS (64 sets, daily range): BP systolic 0–141; BP diastolic 0–82
[2020-04-25] MEDS: ALLOPURINOL 300 MG TABLET PO SCH (04:55)
[2020-04-25] MEDS: BLOOD SUGAR DIAGNOSTIC STRIP TEST SCH ×14 (04:55→23:00)
[2020-04-25] MEDS ORDERED: EPINEPHRINE 5 MG in DEXT 5% WATER 245 ML IV PRN (06:00)
[2020-04-25] MEDS ORDERED: CEFAZOLIN 2,000 MG in DEXT 5% WATER 100 ML IV PRN (06:00)
[2020-04-25] MEDS ORDERED: NOREPINEPHRINE 8 MG in DEXT 5% WATER 242 ML IV PRN (06:00)
[2020-04-25] MEDS ORDERED: DEL NIDO ELECTROLYTE-S(PH 7.4) 1,000 ML IV PRN ×2 (06:00)
[2020-04-25] MEDS ORDERED: CHLORHEXIDINE GLUCONATE 4% EXTERNAL USE TOP SCH (06:00)
[2020-04-25] MEDS ORDERED: AMINOCAPROIC ACID 5,000 MG in SODIUM CHLORIDE 0.9% 230 ML IV PRN (06:00)
[2020-04-25] MEDS ORDERED: INSULIN REGULAR (DRIP) 100 UNITS in SODIUM CHLORIDE 0.9% 99 ML IV PRN (06:00)
[2020-04-25] MEDS ORDERED: PAPAVERINE HCL 180MG in SODIUM CHLORIDE 0.9% 24ML IV PRN (06:00)
[2020-04-25] MEDS: INSULIN LISPRO 100 UNITS/ML SUBCUT SCH (06:13)
[2020-04-25] MEDS ORDERED: BACITRACIN 50,000 UNITS/VIAL ONE (06:18)
[2020-04-25] MEDS ORDERED: BACITRACIN 15GM TUBE TOP ONE (06:18)
[2020-04-25] MEDS ORDERED: THROMBIN (BOVINE) 5000 UNITS/VIAL TOP ONE (06:18)
[2020-04-25] MEDS ORDERED: SODIUM CHLORIDE 0.9% IRRIG SOL 8,000 ML IR ONE (06:19)
[2020-04-25] MEDS ORDERED: SODIUM CHLORIDE 0.9% 4,000 ML ONE (06:19)
[2020-04-25] MEDS ORDERED: SODIUM CHLORIDE 0.9% INJ 10ML FLUSH IVF ONE (06:19)
[2020-04-25] MEDS ORDERED: HEPARIN 1000 UNITS/ML 10ML ONE ×2 (06:28→07:08)
[2020-04-25] MEDS ORDERED: ACETAMINOPHEN 500MG TABLET ONE (06:29)
[2020-04-25] MEDS ORDERED: SEVOFLURANE 250 ML LIQUID INH ONE (06:40)
[2020-04-25] MEDS ORDERED: DOPAMINE 400MG/250ML PREMIX 250 ML IV ONE (06:40)
[2020-04-25] MEDS ORDERED: MIDAZOLAM HCL 2 MG/2 ML VIAL ONE (06:58)
[2020-04-25] MEDS ORDERED: PROPOFOL 200MG/20ML VIAL IV ONE (06:59)
[2020-04-25] MEDS ORDERED: FENTANYL CITRATE/PF 50MCG/ML 5ML VIAL ONE (06:59)
[2020-04-25] MEDS ORDERED: ROCURONIUM BROMIDE 10MG/ML VIAL 5ML IV ONE (07:02)
[2020-04-25] MEDS ORDERED: ETOMIDATE 2MG/ML 10ML VIAL IV ONE (07:03)
[2020-04-25] MEDS ORDERED: LABETALOL HCL 5MG/ML VIAL 20ML IV ONE (07:04)
[2020-04-25] MEDS ORDERED: METOCLOPRAMIDE HCL 10MG/2ML VIAL ONE (07:04)
[2020-04-25] MEDS ORDERED: ONDANSETRON HCL 4MG/2ML INJ ONE (07:04)
[2020-04-25] MEDS ORDERED: PHENYLEPHRINE HCL 10 MG/ML 1ML (IV VIAL) IV ONE (07:13)
[2020-04-25] MEDS ORDERED: FUROSEMIDE 100MG/10ML VIAL ONE (08:24)
[2020-04-25] MEDS ORDERED: MAGNESIUM SULFATE 5GM/10ML VIAL IV ONE (08:26)
[2020-04-25] MEDS ORDERED: SKIN ADHESIVE 0.7 GM EA TOP ONE (08:33)
[2020-04-25] MEDS ORDERED: ASPIRIN 81MG TABLET PO SCH (09:00)
[2020-04-25] MEDS ORDERED: OXYBUTYNIN CHLORIDE 5MG TABLET PO SCH (09:00)
[2020-04-25] MEDS: METOPROLOL TARTRATE 25MG TABLET PO SCH ×2 (09:00→20:45)
[2020-04-25] MEDS: GABAPENTIN 300MG CAPSULE PO SCH ×3 (09:00→18:12)
[2020-04-25] MEDS ORDERED: CLOPIDOGREL 75MG TABLET PO SCH (09:00)
[2020-04-25] MEDS ORDERED: CALCIUM CHLORIDE 1GM/10ML SYR IV ONE (09:32)
[2020-04-25] MEDS ORDERED: NEOSTIGMINE METHYLSULFATE 1MG/ML 10 ML VIAL ONE (10:42)
[2020-04-25] MEDS ORDERED: PROTAMINE SULFATE 10MG/ML VIAL 25ML IV ONE (11:04)
[2020-04-25] MEDS ORDERED: KETOROLAC 30MG/ML VIAL ONE (11:07)
[2020-04-25] MEDS ORDERED: ALBUMIN HUMAN 12.5G/250ML (5%) IV ONE (11:20)
[2020-04-25] MEDS ORDERED: ALBUMIN HUMAN 25GM/100ML (25%) IV ONE (11:20)
[2020-04-25] MEDS ORDERED: HEPARIN 10,000 UNITS/ML VIAL ONE (11:20)
[2020-04-25] MEDS ORDERED: POTASSIUM CHLORIDE 40MEQ/20ML INJ IV ONE (11:33)
[2020-04-25] MEDS ORDERED: CALCIUM CHLORIDE 3,000 MG in DEXT 5% WATER 250 ML IV PRN (11:45)
[2020-04-25] MEDS ORDERED: MAGNESIUM SULFATE 3 GM in DEXT 5% WATER 100 ML IV PRN (11:45)
[2020-04-25] MEDS ORDERED: DEXTROSE 50% WATER 50ML SYRINGE IV PRN ×2 (11:45)
[2020-04-25] MEDS ORDERED: MAGNESIUM 1 G PREMIX 100 ML IV PRN (11:45)
[2020-04-25] MEDS ORDERED: DOPAMINE 400MG/250ML PREMIX 250 ML IV SCH (11:45)
[2020-04-25] MEDS ORDERED: ACETAMINOPHEN 325MG TABLET PO PRN (11:45)
[2020-04-25] MEDS ORDERED: INSULIN REGULAR (DRIP) 100 UNITS in SODIUM CHLORIDE 0.9% 100 ML IV SCH (11:45)
[2020-04-25] MEDS: MAGNESIUM HYDROXIDE 400MG/5ML 30ML UDC PO SCH ×4 (11:45→23:45)
[2020-04-25] MEDS ORDERED: ALBUMIN HUMAN 12.5G/250ML (5%) IV PRN (11:45)
[2020-04-25] MEDS ORDERED: ALBUMIN HUMAN 25GM/100ML (25%) IV PRN (11:45)
[2020-04-25] MEDS ORDERED: MORPHINE SULFATE 2 MG/ML CPJ (NOT FOR IM USE) IV PRN (11:45)
[2020-04-25] MEDS ORDERED: EPINEPHRINE 5 MG in DEXT 5% WATER 245 ML IV SCH (11:45)
[2020-04-25] MEDS ORDERED: KCL 10MEQ/50ML PREMIX 150 ML IV PRN (11:45)
[2020-04-25] MEDS ORDERED: MAGNESIUM 2 G PREMIX 50 ML IV PRN (11:45)
[2020-04-25 12:10] LABS: BG BASE EXCESS -3.2 mmol/L (-2.0-2.0); BG CARBOXYHEMOGLOBIN 0.1 % (0.5-1.5); BG DEOXYHEMOGLOBIN 0.5 % (0.0-5.0); BG FRACTION INSPIRED OXYGEN 99.9; BG HCO3 ACT 21.4 mmol/L (22.0-26.0); BG METHEMOGLOBIN 0.4 % (0.0-1.5); BG OXYGEN SATURATION 99.5 % (92.0-98.5); BG PCO2 36.9 mmHg (35.0-45.0); BG PH 7.381 (7.350-7.450); BG PO2 323.2 mmHg (75.0-100.0); BG SAMPLE SITE ALINE; BG TOTAL HEMOGLOBIN 11.9 g/dL (12.0-18.0); BG VENT MODE MASK - NRB
[2020-04-25 12:46] LABS: BASOPHILS % 0.3 % (0.0-2.0); EOSINOPHILS % 0.8 % (0.0-5.0); HEMATOCRIT. 33.1 % (36.0-48.0); HEMOGLOBIN. 10.8 g/dL (12.0-16.0); LYMPHOCYTES % 19.3 % (20.0-50.0); MEAN CORPUSCULAR HEMOGLOBIN 26.8 pg (28.0-32.0); MEAN CORPUSCULAR VOLUME 81.9 fL (81.0-99.0); MEAN PLATELET VOLUME 7.6 fl (7.4-10.4); MONOCYTES % 5.3 % (2.0-8.0); NEUTROPHILS % 74.3 % (40.0-76.0); PLATELET 321 x1000/uL (130-400); RED BLOOD CELL COUNT 4.04 mill/uL (4.2-5.4); RED CELL DISTRIBUTION WIDTH 15.6 % (11.6-14.6)
[2020-04-25 12:55] LABS: CHLORIDE 106 mEq/L (98-107)
[2020-04-25] MEDS ORDERED: DEXT 5%/0.45% NACL 1000ML 1,000 ML IV SCH (13:15)
[2020-04-25] MEDS: FAMOTIDINE 20MG/2ML VIAL IV SCH (13:29)
[2020-04-25] MEDS: CEFAZOLIN 1000MG PREMIX 50 ML IV SCH ×2 (13:29→22:22)
[2020-04-25] MEDS: KETOROLAC 30MG/ML VIAL IV PRN ×2 (14:17→23:01)
[2020-04-25] MEDS ORDERED: POTASSIUM CHLORIDE IV ONE (15:00)
[2020-04-25 16:39] LABS: CREATINE KINASE MB FRACTION 8.4 ng/mL (0.5-3.6)
[2020-04-25] MEDS: BACITRACIN 15GM TUBE TOP SCH (17:00)
[2020-04-25] MEDS: IPRATROPIUM/ALBUTEROL 0.5-3(2.5)MG/3ML NEB HHN SCH ×2 (17:05→20:37)
[2020-04-25 17:23] LABS: BG BASE EXCESS -1.9 mmol/L (-2.0-2.0); BG CARBOXYHEMOGLOBIN 0.1 % (0.5-1.5); BG DEOXYHEMOGLOBIN 2.8 % (0.0-5.0); BG FRACTION INSPIRED OXYGEN 32; BG HCO3 ACT 22.1 mmol/L (22.0-26.0); BG METHEMOGLOBIN 0.2 % (0.0-1.5); BG OXYGEN SATURATION 97.2 % (92.0-98.5); BG OXYHEMOGLOBIN 96.9 % (94.0-97.0); BG PCO2 34.4 mmHg (35.0-45.0); BG PH 7.426 (7.350-7.450); BG PO2 99.4 mmHg (75.0-100.0); BG SAMPLE SITE ALINE; BG TOTAL HEMOGLOBIN 8.7 g/dL (12.0-18.0); BG VENT MODE NASAL CANNULA
[2020-04-25 17:39] LABS: BASOPHILS % 0.5 % (0.0-2.0); EOSINOPHILS % 0.1 % (0.0-5.0); LYMPHOCYTES % 7.7 % (20.0-50.0); MEAN CORPUSCULAR HEMOGLOBIN 27.4 pg (28.0-32.0); MEAN CORPUSCULAR VOLUME 82.3 fL (81.0-99.0); MEAN PLATELET VOLUME 7.4 fl (7.4-10.4); MONOCYTES % 8.5 % (2.0-8.0); NEUTROPHILS % 83.2 % (40.0-76.0); PLATELET 200 x1000/uL (130-400); RED BLOOD CELL COUNT 2.54 mill/uL (4.2-5.4); RED CELL DISTRIBUTION WIDTH 15.6 % (11.6-14.6)
[2020-04-25 17:45] LABS: CHLORIDE 115 mEq/L (98-107)
[2020-04-25 17:47] LABS: HEMATOCRIT. 20.9 % (36.0-48.0)
[2020-04-25 18:03] LABS: HEMOGLOBIN 7.6 g/dL (12.0-16.0)
[2020-04-25] MEDS: DOCUSATE SODIUM 100MG CAPSULE PO SCH (18:12)
[2020-04-25] MEDS: KCL 10MEQ/50ML PREMIX 200 ML IV PRN ×3 (18:15→18:17)
[2020-04-25 18:46] LABS: BASOPHILS % 0.3 % (0.0-2.0); EOSINOPHILS % 0.1 % (0.0-5.0); HEMATOCRIT. 23.9 % (36.0-48.0); HEMOGLOBIN. 7.9 g/dL (12.0-16.0); LYMPHOCYTES % 9.8 % (20.0-50.0); MEAN CORPUSCULAR VOLUME 81.4 fL (81.0-99.0); MEAN PLATELET VOLUME 7.1 fl (7.4-10.4); MONOCYTES % 10.4 % (2.0-8.0); NEUTROPHILS % 79.4 % (40.0-76.0); PLATELET 214 x1000/uL (130-400); RED BLOOD CELL COUNT 2.93 mill/uL (4.2-5.4); RED CELL DISTRIBUTION WIDTH 15.8 % (11.6-14.6)
[2020-04-25 18:52] LABS: CHLORIDE 110 mEq/L (98-107)
[2020-04-25] MEDS: KCL 10MEQ/50ML PREMIX 100 ML IV PRN ×2 (18:59→19:00)
[2020-04-25] MEDS ORDERED: FUROSEMIDE 40MG/4ML VIAL IVP NR (19:15)
[2020-04-25] MEDS: ATORVASTATIN CALCIUM 40MG TABLET PO SCH (20:44)
[2020-04-25] MEDS: CLOPIDOGREL 75MG TABLET PO SCH (20:44)
[2020-04-25] MEDS: ACETAMINOPHEN 325MG TABLET PO PRN (23:46)
[2020-04-26] VITALS (88 sets, daily range): BP systolic 66–166; BP diastolic 34–100
[2020-04-26] MEDS: BLOOD SUGAR DIAGNOSTIC STRIP TEST SCH ×14 (01:00→20:36)
[2020-04-26] MEDS: OXYCODONE HCL/ACETAMINOPHEN 5/325MG TABLET PO PRN ×3 (01:02→23:19)
[2020-04-26] MEDS: IPRATROPIUM/ALBUTEROL 0.5-3(2.5)MG/3ML NEB HHN SCH ×5 (03:16→20:05)
[2020-04-26] MEDS: MAGNESIUM HYDROXIDE 400MG/5ML 30ML UDC PO SCH ×3 (03:45→12:23)
[2020-04-26] MEDS: ONDANSETRON HCL 4MG/2ML INJ IV PRN ×4 (03:51→23:13)
[2020-04-26 04:29] LABS: BASOPHILS % 0.6 % (0.0-2.0); EOSINOPHILS % 0.1 % (0.0-5.0); HEMATOCRIT. 33.8 % (36.0-48.0); HEMOGLOBIN. 11.1 g/dL (12.0-16.0); LYMPHOCYTES % 18.3 % (20.0-50.0); MEAN CORPUSCULAR HEMOGLOBIN 27.4 pg (28.0-32.0); MEAN CORPUSCULAR VOLUME 83.5 fL (81.0-99.0); MEAN PLATELET VOLUME 7.8 fl (7.4-10.4); MONOCYTES % 11.3 % (2.0-8.0); NEUTROPHILS % 69.7 % (40.0-76.0); PLATELET 234 x1000/uL (130-400); RED BLOOD CELL COUNT 4.04 mill/uL (4.2-5.4); RED CELL DISTRIBUTION WIDTH 15.9 % (11.6-14.6)
[2020-04-26 04:51] LABS: CHLORIDE 107 mEq/L (98-107)
[2020-04-26] MEDS: CEFAZOLIN 1000MG PREMIX 50 ML IV SCH (06:06)
[2020-04-26] MEDS ORDERED: MAGNESIUM 2 G PREMIX 50 ML IV SCH (06:30)
[2020-04-26] MEDS ORDERED: FUROSEMIDE 20MG/2ML VIAL IVP SCH (06:30)
[2020-04-26] MEDS: DOCUSATE SODIUM 100MG CAPSULE PO SCH ×2 (08:08→17:02)
[2020-04-26] MEDS: CLOPIDOGREL 75MG TABLET PO SCH (08:08)
[2020-04-26] MEDS: FAMOTIDINE 20MG/2ML VIAL IV SCH (08:08)
[2020-04-26] MEDS: GABAPENTIN 300MG CAPSULE PO SCH ×3 (08:08→17:02)
[2020-04-26] MEDS: BACITRACIN 15GM TUBE TOP SCH ×2 (08:58→17:00)
[2020-04-26] MEDS: METOPROLOL TARTRATE 25MG TABLET PO SCH ×2 (09:00→20:36)
[2020-04-26] MEDS ORDERED: CEFTRIAXONE 1 G PREMIX 50 ML IV SCH (10:00)
[2020-04-26 10:38] LABS: BG BASE EXCESS -1.6 mmol/L (-2.0-2.0); BG CARBOXYHEMOGLOBIN 0.3 % (0.5-1.5); BG DEOXYHEMOGLOBIN 2.1 % (0.0-5.0); BG FRACTION INSPIRED OXYGEN 32; BG HCO3 ACT 22.5 mmol/L (22.0-26.0); BG METHEMOGLOBIN 0.3 % (0.0-1.5); BG OXYGEN SATURATION 97.9 % (92.0-98.5); BG OXYHEMOGLOBIN 97.3 % (94.0-97.0); BG PCO2 35.9 mmHg (35.0-45.0); BG PH 7.415 (7.350-7.450); BG PO2 124.5 mmHg (75.0-100.0); BG SAMPLE SITE ALINE; BG TOTAL HEMOGLOBIN 11.6 g/dL (12.0-18.0); BG VENT MODE NASAL CANNULA
[2020-04-26] MEDS: ALBUMIN HUMAN 25GM/100ML (25%) IV SCH ×3 (10:38→14:01)
[2020-04-26] MEDS: MIDODRINE HCL 5MG TABLET PO SCH ×3 (10:50→17:02)
[2020-04-26] MEDS ORDERED: DEXTROSE 50% WATER 50ML SYRINGE IV PRN (11:15)
[2020-04-26] MEDS: CEFTRIAXONE 1,000 MG in DEXTROSE 5% WATER 50 ML IV SCH (12:22)
[2020-04-26] MEDS: INSULIN LISPRO 100 UNITS/ML SUBCUT SCH ×3 (12:53→20:39)
[2020-04-26] MEDS: ATORVASTATIN CALCIUM 40MG TABLET PO SCH (20:36)
[2020-04-27] VITALS (34 sets, daily range): BP systolic 94–168; BP diastolic 42–85
[2020-04-27] MEDS: IPRATROPIUM/ALBUTEROL 0.5-3(2.5)MG/3ML NEB HHN SCH ×7 (00:18→20:25)
[2020-04-27 05:54] LABS: EOSINOPHILS % 0.1 % (0.0-5.0); HEMATOCRIT. 30.8 % (36.0-48.0); HEMOGLOBIN. 10.4 g/dL (12.0-16.0); LYMPHOCYTES % 12.1 % (20.0-50.0); MEAN CORPUSCULAR HEMOGLOBIN 28.2 pg (28.0-32.0); MEAN CORPUSCULAR VOLUME 83.3 fL (81.0-99.0); MEAN PLATELET VOLUME 7.7 fl (7.4-10.4); MONOCYTES % 7.8 % (2.0-8.0); PLATELET 175 x1000/uL (130-400); RED CELL DISTRIBUTION WIDTH 16.6 % (11.6-14.6)
[2020-04-27] MEDS ORDERED: FUROSEMIDE 20MG/2ML VIAL IVP SCH (06:45)
[2020-04-27] MEDS: OXYCODONE HCL/ACETAMINOPHEN 5/325MG TABLET PO PRN (07:33)
[2020-04-27] MEDS: BLOOD SUGAR DIAGNOSTIC STRIP TEST SCH ×4 (08:42→20:47)
[2020-04-27] MEDS: MIDODRINE HCL 5MG TABLET PO SCH ×3 (08:55→18:28)
[2020-04-27] MEDS: CLOPIDOGREL 75MG TABLET PO SCH (08:55)
[2020-04-27] MEDS: DOCUSATE SODIUM 100MG CAPSULE PO SCH ×2 (08:55→18:28)
[2020-04-27] MEDS: GABAPENTIN 300MG CAPSULE PO SCH ×3 (08:55→18:28)
[2020-04-27] MEDS: FAMOTIDINE 20MG TABLET PO SCH (08:55)
[2020-04-27] MEDS: INSULIN LISPRO 100 UNITS/ML SUBCUT SCH ×4 (08:56→20:55)
[2020-04-27] MEDS ORDERED: SODIUM POLYSTYRENE SULFONATE 15 G/60 ML BOT PO SCH (09:00)
[2020-04-27] MEDS: ONDANSETRON HCL 4MG/2ML INJ IV PRN (11:46)
[2020-04-27] MEDS: CEFTRIAXONE 1,000 MG in DEXTROSE 5% WATER 50 ML IV SCH (11:47)
[2020-04-27] MEDS: BACITRACIN 15GM TUBE TOP SCH ×2 (11:47→18:25)
[2020-04-27] MEDS ORDERED: TRAMADOL 50MG TABLET PO PRN (12:30)
[2020-04-27] MEDS ORDERED: SODIUM BICARBONATE 8.4% 1 MEQ/ML 50ML SYR IV NR (12:45)
[2020-04-27] MEDS ORDERED: DEXTROSE 50% WATER 50ML SYRINGE IV NR (12:45)
[2020-04-27] MEDS ORDERED: HYDROCODONE/ACETAMINOPHEN 5/325MG TABLET PO PRN (12:45)
[2020-04-27] MEDS ORDERED: INSULIN REGULAR (HUMULIN R) 300UNITS/3ML VIAL IV NR (13:00)
[2020-04-27] MEDS ORDERED: INSULIN REGULAR (HUMULIN R) UD 100 UNITS/ML SYR IV NR (13:00)
[2020-04-27] MEDS ORDERED: OXYCODONE HCL/ACETAMINOPHEN 5/325MG TABLET PO PRN (15:00)
[2020-04-27] MEDS: ATORVASTATIN CALCIUM 40MG TABLET PO SCH (20:47)
[2020-04-28] VITALS (11 sets, daily range): BP systolic 98–137; BP diastolic 51–81
[2020-04-28] MEDS: IPRATROPIUM/ALBUTEROL 0.5-3(2.5)MG/3ML NEB HHN SCH ×5 (04:20→20:18)
[2020-04-28] MEDS ORDERED: FUROSEMIDE 40MG/4ML VIAL IVP SCH ×2 (04:30→08:00)
[2020-04-28] MEDS: BLOOD SUGAR DIAGNOSTIC STRIP TEST SCH ×4 (05:53→21:19)
[2020-04-28 07:08] LABS: BASOPHILS % 0.4 % (0.0-2.0); EOSINOPHILS % 1.1 % (0.0-5.0); HEMATOCRIT. 31.5 % (36.0-48.0); HEMOGLOBIN. 10.5 g/dL (12.0-16.0); MEAN CORPUSCULAR HEMOGLOBIN 27.9 pg (28.0-32.0); MEAN CORPUSCULAR VOLUME 83.9 fL (81.0-99.0); MEAN PLATELET VOLUME 8.3 fl (7.4-10.4); MONOCYTES % 7.9 % (2.0-8.0); NEUTROPHILS % 78.6 % (40.0-76.0); PLATELET 184 x1000/uL (130-400); RED BLOOD CELL COUNT 3.75 mill/uL (4.2-5.4); RED CELL DISTRIBUTION WIDTH 16.1 % (11.6-14.6)
[2020-04-28 07:28] LABS: CHLORIDE 101 mEq/L (98-107)
[2020-04-28] MEDS ORDERED: SPIRONOLACTONE 25MG TABLET PO SCH ×2 (09:00)
[2020-04-28] MEDS: METOPROLOL TARTRATE 25MG TABLET PO SCH ×3 (09:00→21:19)
[2020-04-28] MEDS: INSULIN LISPRO 100 UNITS/ML SUBCUT SCH ×4 (09:55→21:00)
[2020-04-28] MEDS: DOCUSATE SODIUM 100MG CAPSULE PO SCH ×2 (09:56→18:09)
[2020-04-28] MEDS: FAMOTIDINE 20MG TABLET PO SCH (09:56)
[2020-04-28] MEDS: FUROSEMIDE 40MG TABLET PO SCH (09:56)
[2020-04-28] MEDS: GABAPENTIN 300MG CAPSULE PO SCH ×3 (09:56→18:14)
[2020-04-28] MEDS: BACITRACIN 15GM TUBE TOP SCH ×2 (09:57→19:11)
[2020-04-28] MEDS: CLOPIDOGREL 75MG TABLET PO SCH (09:59)
[2020-04-28] MEDS: ONDANSETRON HCL 4MG/2ML INJ IV PRN (10:14)
[2020-04-28] MEDS: MIDODRINE HCL 5MG TABLET PO SCH ×3 (13:03→18:14)
[2020-04-28] MEDS: CEFTRIAXONE 1,000 MG in DEXTROSE 5% WATER 50 ML IV SCH (14:18)
[2020-04-28] MEDS: ATORVASTATIN CALCIUM 40MG TABLET PO SCH (21:22)
[2020-04-29] VITALS (15 sets, daily range): BP systolic 101–149; BP diastolic 58–78
[2020-04-29] MEDS: IPRATROPIUM/ALBUTEROL 0.5-3(2.5)MG/3ML NEB HHN SCH ×6 (02:00→20:47)
[2020-04-29] MEDS ORDERED: FUROSEMIDE 40MG/4ML VIAL IVP SCH (04:45)
[2020-04-29] MEDS: BLOOD SUGAR DIAGNOSTIC STRIP TEST SCH ×4 (05:58→20:15)
[2020-04-29] MEDS: INSULIN LISPRO 100 UNITS/ML SUBCUT SCH ×4 (07:01→20:22)
[2020-04-29] MEDS: METOPROLOL TARTRATE 25MG TABLET PO SCH ×2 (09:00→20:17)
[2020-04-29] MEDS: FUROSEMIDE 40MG TABLET PO SCH (12:19)
[2020-04-29] MEDS: MIDODRINE HCL 5MG TABLET PO SCH ×3 (12:19→16:04)
[2020-04-29] MEDS: GABAPENTIN 300MG CAPSULE PO SCH ×3 (12:20→16:04)
[2020-04-29] MEDS: DOCUSATE SODIUM 100MG CAPSULE PO SCH ×2 (12:20→16:04)
[2020-04-29] MEDS: FAMOTIDINE 20MG TABLET PO SCH (12:20)
[2020-04-29] MEDS: CLOPIDOGREL 75MG TABLET PO SCH (12:20)
[2020-04-29] MEDS: ACETAMINOPHEN 325MG TABLET PO PRN (12:21)
[2020-04-29] MEDS: BACITRACIN 15GM TUBE TOP SCH ×2 (12:22→16:05)
[2020-04-29] MEDS ORDERED: POLYETHYLENE GLYCOL 3350 (17GM) 1 DOSE PACK PO PRN (12:30)
[2020-04-29] MEDS ORDERED: BISACODYL 10MG SUPP PR PRN (12:30)
[2020-04-29] MEDS ORDERED: MAGNESIUM HYDROXIDE 400MG/5ML 30ML UDC PO PRN (12:30)
[2020-04-29 12:37] LABS: BASOPHILS % 0.5 % (0.0-2.0); EOSINOPHILS % 1.8 % (0.0-5.0); HEMOGLOBIN. 11.4 g/dL (12.0-16.0); LYMPHOCYTES % 15.4 % (20.0-50.0); MEAN CORPUSCULAR HEMOGLOBIN 27.5 pg (28.0-32.0); MEAN CORPUSCULAR VOLUME 84.7 fL (81.0-99.0); MEAN PLATELET VOLUME 7.9 fl (7.4-10.4); MONOCYTES % 7.9 % (2.0-8.0); NEUTROPHILS % 74.4 % (40.0-76.0); PLATELET 252 x1000/uL (130-400); RED BLOOD CELL COUNT 4.14 mill/uL (4.2-5.4); RED CELL DISTRIBUTION WIDTH 16.4 % (11.6-14.6)
[2020-04-29 12:49] LABS: CHLORIDE 98 mEq/L (98-107)
[2020-04-29] MEDS: CEFTRIAXONE 1,000 MG in DEXTROSE 5% WATER 50 ML IV SCH (15:24)
[2020-04-29] MEDS: KCL 10MEQ/50ML PREMIX 200 ML IV PRN ×3 (16:05→21:19)
[2020-04-29] MEDS ORDERED: POTASSIUM CHLORIDE 20MEQ/PACKET PO NR (16:30)
[2020-04-29] MEDS: ATORVASTATIN CALCIUM 40MG TABLET PO SCH (20:15)
[2020-04-29] MEDS ORDERED: SENNOSIDES/DOCUSATE SOD 8.6/50MG TABLET PO PRN (21:00)
[2020-05-11] MEDS ORDERED: FERR325T23 PO (12:09)
[2020-05-11] MEDS ORDERED: GABA-532 MT (12:09)
[2020-05-11] MEDS ORDERED: NITR0.4T49 SL (12:09)
[2020-05-11] MEDS ORDERED: METF1000 MT (12:09)
[2020-05-11] MEDS ORDERED: METO25TA6 PO (12:09)
[2020-05-11] MEDS ORDERED: CLOP75TA15 PO (12:09)
[2020-05-11] MEDS ORDERED: FAMO20TA8 PO (12:09)
[2020-05-11] MEDS ORDERED: ONDA4TAB5 MT (12:09)
[2020-05-11] MEDS ORDERED: APIX5TAB PO (12:09)
[2020-05-11] MEDS ORDERED: LIDO700A30 TOP (12:09)
[2020-05-11] MEDS ORDERED: LIP40 PO (12:09)
[2020-05-11] MEDS ORDERED: FURO40TA5 PO (12:09)
[2020-05-11] MEDS ORDERED: ASCO500T20 PO (12:09)
[2020-05-11] MEDS ORDERED: SENN1TAB35 PO (12:09)
[2020-05-11] MEDS ORDERED: TOPUD PO (12:09)
== END 2020-04-29 23:30 | DRG 853 ==
LOC: ER 12:19 → 3WST 14:46 → ENRESERV 15:48 → CVICU 04-25 07:28 → 3WST 04-27 12:20
PROVIDERS: ADMIT Family Medicine Adult Medicine; ATTEND Family Medicine Adult Medicine
PROC: 021309W Bypass Coronary Artery, Four or More Arteries from Aorta with Autologous Venous Tissue, Open Approach (ICD-10-PCS; principal; 2020-04-25)
PROC: 02100Z9 Bypass Coronary Artery, One Artery from Left Internal Mammary, Open Approach (ICD-10-PCS; 2020-04-25)
PROC: 06BQ4ZZ Excision of Left Saphenous Vein, Percutaneous Endoscopic Approach (ICD-10-PCS; 2020-04-25)
PROC: 30233N1 Transfusion of Nonautologous Red Blood Cells into Peripheral Vein, Percutaneous Approach (ICD-10-PCS; 2020-04-25)
PROC: 02HV33Z Insertion of Infusion Device into Superior Vena Cava, Percutaneous Approach (ICD-10-PCS; 2020-04-25)
DX: A41.51 Sepsis due to Escherichia coli [E. coli] (principal); I21.4 Non-ST elevation (NSTEMI) myocardial infarction; I50.23 Acute on chronic systolic (congestive) heart failure; R57.0 Cardiogenic shock; D62 Acute posthemorrhagic anemia; E87.1 Hypo-osmolality and hyponatremia; N17.9 Acute kidney failure, unspecified; N39.0 Urinary tract infection, site not specified; J98.11 Atelectasis; I42.9 Cardiomyopathy, unspecified; I25.119 Atherosclerotic heart disease of native coronary artery with unspecified angina pectoris; E11.40 Type 2 diabetes mellitus with diabetic neuropathy, unspecified; E78.5 Hyperlipidemia, unspecified; I11.0 Hypertensive heart disease with heart failure; E11.65 Type 2 diabetes mellitus with hyperglycemia; E87.5 Hyperkalemia; E87.6 Hypokalemia; I50.82 Biventricular heart failure; R53.81 Other malaise; R26.9 Unspecified abnormalities of gait and mobility; Z79.4 Long term (current) use of insulin; Z95.5 Presence of coronary angioplasty implant and graft; I25.2 Old myocardial infarction; Z82.49 Family history of ischemic heart disease and other diseases of the circulatory system; Z79.02 Long term (current) use of antithrombotics/antiplatelets; Z79.899 Other long term (current) drug therapy; Z20.822 Contact with and (suspected) exposure to COVID-19
CPT/HCPCS: 36415; 36600; 71045; 80048; 80053; 81003; 82330; 82375; 82553; 82805; 82962; 83036; 83735; 83880; 84132; 84484; 85014; 85018; 85025; 85520; 86850; 86900; 86920; 87077; 87186; 87426; 93005; 94640; 97110; 97116; 97163; 97166; 97530; 97535; 99291; C1729; C1751; C1758; J0690; J0696; J1265; J1644; J1815; J1885; J1940; J2250; J2270; J2370; J2405; J2704; J2710; J2720; J2765; J3010; J3475; J3480; J3490; J7030; J7040; J7050; J7060; L3908; P9016; P9041; P9047

== ENCOUNTER 2021-07-05 19:50 | Emergency (ER) | payer OTHER ==
[~2021-07-05] VITALS: Ht 170.2 cm; Wt 84.0 kg
[~2021-07-05 19:50] MED LIST changes: +APIX5TAB PO; +ASCO500T20 PO; -ASPI-1160 PO; -AZIT500T8 MT; +FAMO20TA8 PO; +FERR325T23 PO; +FURO40TA5 PO; +GABA-532 MT; -LANTUSUD SUBCUT; +LIDO700A30 TOP; +METF1000 MT; +NITR0.4T49 SL; +ONDA4TAB5 MT; +SENN1TAB35 PO; +TOPUD PO
[2021-07-05 21:54] LABS: BASOPHILS % 0.9 % (0.0-2.0); EOSINOPHILS % 6.6 % (0.0-5.0); HEMATOCRIT. 37.9 % (36.0-48.0); HEMOGLOBIN. 12.6 g/dL (12.0-16.0); LYMPHOCYTES % 35.6 % (20.0-50.0); MEAN CORPUSCULAR HEMOGLOBIN 28.9 pg (28.0-32.0); MEAN CORPUSCULAR VOLUME 86.8 fL (81.0-99.0); MEAN PLATELET VOLUME 8.6 fl (7.4-10.4); MONOCYTES % 7.1 % (2.0-8.0); NEUTROPHILS % 49.8 % (40.0-76.0); PLATELET 225 x1000/uL (130-400); RED BLOOD CELL COUNT 4.36 mill/uL (4.2-5.4); RED CELL DISTRIBUTION WIDTH 15.9 % (11.6-14.6)
[2021-07-05 21:56] LABS: CHLORIDE 107 mEq/L (98-107)
[2021-07-06 02:56] LABS: CLARITY URINE CLEAR (CLEAR); COLOR URINE YELLOW (YELLOW); KETONES URINE TRACE (NEGATIVE); LEUKOCYTE ESTERASE URINE 2+ (NEGATIVE); NITRITE URINE POSITIVE (NEGATIVE); OCCULT BLOOD URINE NEGATIVE (NEGATIVE); PROTEIN URINE NEGATIVE (NEGATIVE); SPECIFIC GRAVITY URINE 1.016 (1.005-1.030)
[2021-07-06] MEDS ORDERED: CEFTRIAXONE SODIUM 1 G/VIAL IM ONE (03:15)
[2021-07-06] MEDS ORDERED: SULF1TAB48 MT (03:40)
[2021-07-06] MEDS ORDERED: CEPH500T MT (03:40)
[2021-07-06 03:55] VITALS: BP 149/69
== END 2021-07-06 03:57 | disposition home or self-care (01) ==
LOC: ER 19:50
DX: L03.115 Cellulitis of right lower limb (principal); B96.89 Other specified bacterial agents as the cause of diseases classified elsewhere; B95.7 Other staphylococcus as the cause of diseases classified elsewhere; I11.9 Hypertensive heart disease without heart failure; E11.9 Type 2 diabetes mellitus without complications; I25.10 Atherosclerotic heart disease of native coronary artery without angina pectoris; I25.2 Old myocardial infarction
CPT/HCPCS: 36415; 73630; 80053; 81003; 85025; 87040; 87077; 87086; 87186; 93971; 96372; 99285; J0696

== ENCOUNTER 2021-07-09 11:48 | Emergency (ER) | payer OTHER, MEDICAID ==
[~2021-07-09] VITALS: Ht 152.4 cm; Wt 77.0 kg
[~2021-07-09 11:48] MED LIST changes: +CEPH500T MT; +SULF1TAB48 MT
[2021-07-09 14:00] LABS: BASOPHILS % 0.5 % (0.0-2.0); EOSINOPHILS % 4.4 % (0.0-5.0); HEMATOCRIT. 37.8 % (36.0-48.0); HEMOGLOBIN. 12.7 g/dL (12.0-16.0); LYMPHOCYTES % 23.3 % (20.0-50.0); MEAN CORPUSCULAR HEMOGLOBIN 29.1 pg (28.0-32.0); MEAN CORPUSCULAR VOLUME 86.6 fL (81.0-99.0); MEAN PLATELET VOLUME 8.3 fl (7.4-10.4); MONOCYTES % 8.2 % (2.0-8.0); NEUTROPHILS % 63.6 % (40.0-76.0); PLATELET 218 x1000/uL (130-400); RED BLOOD CELL COUNT 4.37 mill/uL (4.2-5.4); RED CELL DISTRIBUTION WIDTH 15.9 % (11.6-14.6)
[2021-07-09 14:06] LABS: CHLORIDE 107 mEq/L (98-107)
[2021-07-09] MEDS ORDERED: ENOXAPARIN 80MG/0.8ML SYR SUBCUT ONE (16:45)
[2021-07-09] MEDS ORDERED: IOHEXOL-350 100 ML BOTTLE ONE (17:35)
[2021-07-09 20:40] VITALS: BP 175/82
== END 2021-07-09 21:18 | disposition short-term general hospital (02) ==
LOC: ER 11:48
DX: I70.90 Unspecified atherosclerosis (principal); M79.671 Pain in right foot; N28.9 Disorder of kidney and ureter, unspecified; E87.5 Hyperkalemia; I25.10 Atherosclerotic heart disease of native coronary artery without angina pectoris; E11.9 Type 2 diabetes mellitus without complications; E78.00 Pure hypercholesterolemia, unspecified; I10 Essential (primary) hypertension; I25.2 Old myocardial infarction; Z79.899 Other long term (current) drug therapy
CPT/HCPCS: 36415; 72191; 73706; 80053; 85025; 87040; 93005; 93922; 96372; 99285; J1650; Q9967

== ENCOUNTER 2023-01-31 19:05 | Inpatient (IN) | payer OTHER ==
[~2023-01-31] VITALS: Ht 160 cm; Wt 79.5 kg
[2023-01-31] MEDS ORDERED: HEPARIN 5000 UNITS/ML VIAL IV ONE (19:30)
[2023-01-31] MEDS ORDERED: HEPARIN 25,000 UNITS PREMIX 250 ML IV ONE (19:30)
[2023-01-31 19:35] LABS: EOSINOPHILS % 5.2 % (0.0-5.0); HEMATOCRIT. 37.4 % (36.0-48.0); HEMOGLOBIN. 12.4 g/dL (12.0-16.0); LYMPHOCYTES % 24.6 % (20.0-50.0); MEAN CORPUSCULAR HEMOGLOBIN 28.6 pg (28.0-32.0); MEAN CORPUSCULAR HGB CONC 33.3 g/dL (31.0-37.0); MEAN CORPUSCULAR VOLUME 86.1 fL (81.0-99.0); MEAN PLATELET VOLUME 9.1 fl (7.4-10.4); MONOCYTES % 6.7 % (2.0-8.0); NEUTROPHILS % 62.5 % (40.0-76.0); PLATELET 223 x1000/uL (130-400); RED BLOOD CELL COUNT 4.35 mill/uL (4.2-5.4); RED CELL DISTRIBUTION WIDTH 14.9 % (11.6-14.6); WHITE BLOOD COUNT 7.6 x1000/uL (4.5-11.0)
[2023-01-31 19:47] LABS: CALCIUM 9.4 mg/dL (8.7-10.4); CARBON DIOXIDE 22 mEq/L (21-32); CHLORIDE 101 mEq/L (98-107); CREATININE 1.2 mg/dL (0.6-1.0); GLUCOSE 316 mg/dL (70-105); SODIUM 133 mEq/L (136-145); TROPONIN I HIGH SENSITIVITY 12 ng/L (3.0-34); UREA NITROGEN BLOOD 20 mg/dL (9-23)
[2023-01-31] MEDS ORDERED: HEPARIN BOLUS PRN aPTT 30-44 IV (20:15)
[2023-01-31] MEDS ORDERED: HEPARIN BOLUS PRN aPTT <30 IV (20:15)
[2023-01-31] MEDS ORDERED: HEPARIN 25,000 UNITS PREMIX 250 ML IV SCH (20:15)
[2023-01-31] MEDS ORDERED: HEPARIN 60 UNITS/KG BOLUS IV NR (20:15)
[2023-01-31] MEDS ORDERED: DEXTROSE 50% WATER 50ML SYRINGE IV PRN (22:45)
[2023-01-31] MEDS ORDERED: ONDANSETRON HCL 4MG/2ML INJ IV PRN (22:45)
[2023-01-31] MEDS ORDERED: ACETAMINOPHEN 325MG TABLET PO PRN ×2 (22:45)
[2023-01-31] MEDS ORDERED: MAGNESIUM/ALUMINUM HYDROXIDE/SIMETHICONE 30ML UDC PO PRN (22:45)
[2023-01-31] MEDS ORDERED: DOCUSATE SODIUM 100MG CAPSULE PO PRN (22:45)
[2023-01-31] MEDS ORDERED: IPRATROPIUM/ALBUTEROL 0.5-3(2.5)MG/3ML NEB HHN PRN (22:45)
[2023-01-31] MEDS ORDERED: CLONIDINE 0.1MG TABLET PO PRN (22:45)
[2023-01-31] MEDS ORDERED: GUAIFENESIN 200MG/10ML SUGAR FREE UDC PO PRN (22:45)
[2023-01-31] MEDS ORDERED: SODIUM CHLORIDE 0.9% 500 ML IV ONE (22:45)
[2023-01-31 23:13] VITALS: BP 123/79; PULSE 60; TEMP 98.2
[2023-02-01] MEDS ORDERED: ASPI-1497 PO (00:03)
[2023-02-01] MEDS ORDERED: CARV6.2548 MT (00:03)
[2023-02-01] MEDS ORDERED: LISI-186 MT (00:03)
[2023-02-01 00:18] VITALS: BP 123/79; PULSE 60; RESP 24; TEMP 98.2
[2023-02-01 01:18] LABS: TROPONIN I HIGH SENSITIVITY 13 ng/L (3.0-34)
[2023-02-01 03:39] LABS: BASOPHILS % 1.1 % (0.0-2.0); EOSINOPHILS % 4.3 % (0.0-5.0); HEMATOCRIT. 35.8 % (36.0-48.0); HEMOGLOBIN. 12.1 g/dL (12.0-16.0); LYMPHOCYTES % 40.6 % (20.0-50.0); MEAN CORPUSCULAR HEMOGLOBIN 28.7 pg (28.0-32.0); MEAN CORPUSCULAR HGB CONC 33.9 g/dL (31.0-37.0); MEAN CORPUSCULAR VOLUME 84.7 fL (81.0-99.0); MEAN PLATELET VOLUME 9.1 fl (7.4-10.4); MONOCYTES % 8.1 % (2.0-8.0); NEUTROPHILS % 45.9 % (40.0-76.0); PLATELET 198 x1000/uL (130-400); RED BLOOD CELL COUNT 4.23 mill/uL (4.2-5.4); WHITE BLOOD COUNT 6.8 x1000/uL (4.5-11.0)
[2023-02-01 03:57] LABS: HEPATITIS B SURFACE ANTIGEN NEGATIVE (Negative); HEPATITIS C AB NON REACTIVE (Neg) (Negative)
[2023-02-01 03:58] LABS: ALANINE AMINOTRANSFERASE 12 IU/L (10-49); ALBUMIN 4.1 g/dL (3.2-4.8); ASPARTATE AMINOTRANSFERASE 14 IU/L (<34); BILIRUBIN TOTAL 0.4 mg/dL (0.1-1.0); CALCIUM 9.4 mg/dL (8.7-10.4); CARBON DIOXIDE 26 mEq/L (21-32); CHLORIDE 102 mEq/L (98-107); CHOLESTEROL 129 mg/dL (<200); CREATININE 0.9 mg/dL (0.6-1.0); GLUCOSE 237 mg/dL (70-105); HDL CHOLESTEROL 44 mg/dL (>65); LDL CHOLESTEROL 93 mg/dL (5-100); POTASSIUM 4.8 mEq/L (3.5-5.1); SODIUM 135 mEq/L (136-145); T4 FREE 1.01 ng/dL (0.89-1.76); THYROID STIMULATING HORMONE 1.86 uIU/mL (0.55-4.78); TRIGLYCERIDE 142 mg/dL (0-150); UREA NITROGEN BLOOD 19 mg/dL (9-23)
[2023-02-01 04:00] VITALS: BP 142/67; PULSE 53; TEMP 98.3
[2023-02-01] MEDS: BLOOD SUGAR DIAGNOSTIC STRIP TEST SCH ×4 (06:11→20:36)
[2023-02-01] MEDS: PANTOPRAZOLE 40MG DR TABLET PO SCH (06:11)
[2023-02-01 08:00] VITALS: BP 142/67; PULSE 60; TEMP 99
[2023-02-01] MEDS: INSULIN LISPRO 100 UNITS/ML SUBCUT SCH ×4 (09:45→20:55)
[2023-02-01 12:00] VITALS: BP 142/67; PULSE 80; RESP 22; TEMP 98
[2023-02-01] MEDS ORDERED: INFLUENZA VACCINE 05/PF 0.5 ML SYRINGE IM ONE (15:00)
[2023-02-01 16:00] VITALS: BP 147/81; PULSE 52; RESP 18; TEMP 98.3
[2023-02-01 20:00] VITALS: BP 147/81; PULSE 59; RESP 18; TEMP 99
[2023-02-01] MEDS ORDERED: ATORVASTATIN CALCIUM 40MG TABLET PO SCH (21:00)
[2023-02-01 23:26] LABS: *AMPHETAMINES SCREEN URINE NEGATIVE (NEGATIVE); *BARBITURATES SCREEN URINE NEGATIVE (NEGATIVE); *BENZODIAZEPINES SCREEN URINE NEGATIVE (NEGATIVE); *COCAINE SCREEN URINE NEGATIVE (NEGATIVE); CANNABINOID URINE SCREEN NEGATIVE (NEGATIVE); CLARITY URINE CLOUDY (CLEAR); COLOR URINE YELLOW (YELLOW); ECSTASY MDMA SCREEN URINE NEGATIVE (NEGATIVE); METHADONE URINE SCREEN Neg (NEGATIVE); OPIATES URINE SCREEN NEGATIVE (NEGATIVE); PHENCYCLIDINE URINE SCREEN NEGATIVE (NEGATIVE); PROTEIN URINE NEGATIVE (NEGATIVE); SPECIFIC GRAVITY URINE 1.025 (1.005-1.030)
[2023-02-01 23:27] LABS: GLUCOSE URINE 3+ (NEGATIVE); KETONES URINE NEGATIVE (NEGATIVE); NITRITE URINE NEGATIVE (NEGATIVE); OCCULT BLOOD URINE NEGATIVE (NEGATIVE)
[2023-02-01 23:29] LABS: LEUKOCYTE ESTERASE URINE TRACE (NEGATIVE)
[2023-02-01 23:32] LABS: BACTERIA URINE 4+; SQUAMOUS EPITHELIAL CELL URINE 1+ /lpf (RARE/1+)
[2023-02-01 23:35] LABS: RBC URINE 0-2 /hpf (0-2)
[2023-02-02 00:05] VITALS: BP 127/64; PULSE 64; RESP 17; TEMP 97.2
[2023-02-02 04:10] VITALS: BP 138/65; PULSE 67; RESP 16; TEMP 97.3
[2023-02-02] MEDS: BLOOD SUGAR DIAGNOSTIC STRIP TEST SCH (06:03)
[2023-02-02] MEDS: PANTOPRAZOLE 40MG DR TABLET PO SCH (06:03)
[2023-02-02] MEDS: INSULIN LISPRO 100 UNITS/ML SUBCUT SCH (07:20)
[2023-02-02 08:00] VITALS: BP 138/65; PULSE 58; RESP 18; TEMP 99
[2023-02-02] MEDS: AMLODIPINE 5MG TABLET PO SCH ×2 (09:41→09:45)
[2023-02-02 10:54] LABS: CALCIUM 9.3 mg/dL (8.7-10.4); CARBON DIOXIDE 22 mEq/L (21-32); CHLORIDE 103 mEq/L (98-107); CREATININE 0.9 mg/dL (0.6-1.0); GLUCOSE 230 mg/dL (70-105); POTASSIUM 4.6 mEq/L (3.5-5.1); SODIUM 136 mEq/L (136-145); UREA NITROGEN BLOOD 23 mg/dL (9-23)
[2023-02-02 11:26] VITALS: BP 115/64; PULSE 58; TEMP 99; O2SAT 100
[2023-02-02 12:00] VITALS: BP 138/65; PULSE 60; RESP 20; TEMP 98
[2023-02-02] MEDS ORDERED: INSULIN GLARGINE 100 UNITS/ML SUBCUT SCH (22:00)
[2023-02-03] MEDS ORDERED: FAMOTIDINE 20MG TABLET PO SCH (06:50)
== END 2023-02-02 13:50 | disposition home or self-care (01) | DRG 74 ==
LOC: ER 19:05 → MICUSO 20:32 → 3WST 23:37
PROVIDERS: ADMIT Internal Medicine; ATTEND Internal Medicine
DX: G90.8 Other disorders of autonomic nervous system (principal); E87.1 Hypo-osmolality and hyponatremia; I50.20 Unspecified systolic (congestive) heart failure; E78.5 Hyperlipidemia, unspecified; E11.9 Type 2 diabetes mellitus without complications; E66.9 Obesity, unspecified; E78.00 Pure hypercholesterolemia, unspecified; E86.0 Dehydration; I11.0 Hypertensive heart disease with heart failure; Z68.31 Body mass index [BMI] 31.0-31.9, adult; I25.2 Old myocardial infarction; I25.10 Atherosclerotic heart disease of native coronary artery without angina pectoris; Z79.01 Long term (current) use of anticoagulants; Z79.82 Long term (current) use of aspirin; Z79.84 Long term (current) use of oral hypoglycemic drugs; Z80.3 Family history of malignant neoplasm of breast; Z82.49 Family history of ischemic heart disease and other diseases of the circulatory system; Z83.3 Family history of diabetes mellitus; Z95.1 Presence of aortocoronary bypass graft
CPT/HCPCS: 36415; 71045; 80048; 80053; 80061; 80305; 81003; 82962; 83036; 83735; 84439; 84443; 84484; 85025; 86705; 87340; 93005; 93306; 93880; 99285; J1644; J1815

== ENCOUNTER 2023-11-22 10:30 | Emergency (ER) | payer OTHER ==
[~2023-11-22] VITALS: Ht 167.6 cm; Wt 85.0 kg
[~2023-11-22 10:30] MED LIST changes: +ASPI-1497 PO; +CARV6.2548 MT; +LISI-186 MT
[2023-11-22 10:48] VITALS: O2SAT 100
[2023-11-22 18:00] VITALS: TEMP 36.78072
[2023-11-22 18:59] LABS: CHLORIDE 104 mEq/L (98-107); POTASSIUM 4.5 mEq/L (3.5-5.1); SODIUM 133 mEq/L (136-145)
[2023-11-22 19:00] LABS: CALCIUM 9.5 mg/dL (8.7-10.4); CARBON DIOXIDE 21 mEq/L (21-32)
[2023-11-22 19:05] LABS: CREATININE 0.9 mg/dL (0.6-1.0); GLUCOSE 271 mg/dL (70-105); UREA NITROGEN BLOOD 15 mg/dL (9-23)
[2023-11-22 19:06] LABS: TROPONIN I HIGH SENSITIVITY 7 ng/L (3.0-34)
[2023-11-22 19:07] LABS: ALANINE AMINOTRANSFERASE 16 IU/L (10-49); ALBUMIN 4.4 g/dL (3.2-4.8); ASPARTATE AMINOTRANSFERASE 21 IU/L (<34); BILIRUBIN TOTAL 0.4 mg/dL (0.1-1.0); PROTEIN TOTAL 7.4 g/dL (6.0-8.3)
[2023-11-22 21:10] LABS: BASOPHILS % 0.7 % (0.0-2.0); EOSINOPHILS % 5.4 % (0.0-5.0); HEMATOCRIT. 39.6 % (36.0-48.0); HEMOGLOBIN. 13.2 g/dL (12.0-16.0); LYMPHOCYTES % 31.1 % (20.0-50.0); MEAN CORPUSCULAR HEMOGLOBIN 29.4 pg (28.0-32.0); MEAN CORPUSCULAR HGB CONC 33.2 g/dL (31.0-37.0); MEAN CORPUSCULAR VOLUME 88.5 fL (81.0-99.0); MONOCYTES % 8.9 % (2.0-8.0); NEUTROPHILS % 53.9 % (40.0-76.0); PLATELET 188 x1000/uL (130-400); RED BLOOD CELL COUNT 4.48 mill/uL (4.2-5.4); RED CELL DISTRIBUTION WIDTH 14.2 % (11.6-14.6); WHITE BLOOD COUNT 6.5 x1000/uL (4.5-11.0)
[2023-11-22 21:21] LABS: D-DIMER 0.46 mg/L FEU (<0.50); INR 0.9; PARTIAL THROMBOPLASTIN TIME 26.7 sec (23.4-31.0); PROTHROMBIN TIME 10.6 sec (9.6-11.0)
[2023-11-22 22:55] VITALS: BP 151/79; PULSE 64; RESP 16; O2SAT 98
== END 2023-11-22 23:03 | disposition home or self-care (01) ==
LOC: ER 10:30
DX: S80.02XA Contusion of left knee, initial encounter (principal); S80.01XA Contusion of right knee, initial encounter; I10 Essential (primary) hypertension; I25.10 Atherosclerotic heart disease of native coronary artery without angina pectoris; E78.00 Pure hypercholesterolemia, unspecified; I25.2 Old myocardial infarction; Z79.899 Other long term (current) drug therapy; Z79.02 Long term (current) use of antithrombotics/antiplatelets; W18.39XA Other fall on same level, initial encounter; Y93.89 Activity, other specified; Y92.89 Other specified places as the place of occurrence of the external cause; Y99.8 Other external cause status
CPT/HCPCS: 36415; 73560; 80053; 84484; 85025; 85379; 93005; 99285